=== PATIENT | female | born 1950 | race Caucasian/White ===

== ENCOUNTER 2017-06-27 23:09 | Inpatient (IN) | payer OTHER ==
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
[2017-06-27] MEDS ORDERED: ALBUTEROL 3 ML DEYVIAL IH ONE (23:32)
--- NOTE | 2017-06-27 23:46 | CPEKG ---
Heart Rate: 96 RR Interval: 625 P-R Interval: 156 QRSD Interval: 84 QT Interval: 352 QTC Interval: 445 P Ariel: 72 QRS Ariel: 48 T Wave Ariel: -3 EKG Severity - BORDERLINE ECG - EKG Impression: SINUS RHYTHM EKG Impression: BORDERLINE T ABNORMALITIES, INFERIOR LEADS Electronically Signed By: Benitez Becker 28-Jun-2017 06:23:18
[2017-06-28 00:08] LABS: % IMMATURE GRANULYOCYTES 1.4 % (0.0-1.1); ABSOLUTE IMMATURE GRANULOCYTES 0.16 10^3/uL (0.00-0.10); ADD DIFF? NO; ADD MORPH? NO; ADD SCAN? NO; ATYPICAL LYMPHOCYTE FLAG 0 (0-99); FRAGMENT RBC FLAG 0 (0-99); HEMATOCRIT 48.3 % (38.0-47.0); HEMOGLOBIN 15.8 g/dL (12.6-16.3); LEFT SHIFT FLG 10 (0-99); LIPEMIA HEMOLYSIS FLAG 80 (0-99); MEAN CELL HEMOGLOBIN 31.3 pg (27.9-34.1); MEAN CELL HEMOGLOBIN CONCENTR. 32.7 g/dL (32.4-36.7); MEAN CELL VOLUME 95.8 fL (81.5-99.8); MEAN PLATELET VOLUME 10.4 fL (8.7-11.7); PLATELET CLUMPS FLAG 0 (0-99); PLATELET COUNT 256 10^3/uL (150-400); RED BLOOD CELL COUNT 5.04 10^6/uL (4.18-5.33); RED CELL DISTRIBUTION WIDTH 14.7 % (11.5-15.2)
[2017-06-28] MEDS ORDERED: NS 1,000 ML IV ONE (00:14)
[2017-06-28 00:24] LABS: ALANINE AMINOTRANSFERASE 57 IU/L (9-52); ALBUMIN 3.4 g/dL (3.5-5.0); ALKALINE PHOSPHATASE 65 IU/L (38-126); ASPARTATE AMINOTRANSFERASE 75 IU/L (14-46); BILIRUBIN,TOTAL 1.1 mg/dL (0.1-1.4); BILIRUBIN-CONJUGATED 0.4 mg/dL (0.0-0.5); BILIRUBIN-UNCONJUGATED 0.7 mg/dL (0.0-1.1); CALCIUM 9.9 mg/dL (8.5-10.4); CARBON DIOXIDE 24 mEq/l (22-31); CHLORIDE 105 mEq/L (97-110); CREATININE 1.1 mg/dL (0.6-1.0); ETHANOL SERUM < 10 mg/dL (0-10); GLOMERULAR FILTRATION RATE 50; GLUCOSE 114 mg/dL (70-100); MAGNESIUM 1.9 mg/dL (1.6-2.3); SODIUM 141 mEq/L (134-144); TOTAL PROTEIN 5.9 g/dL (6.3-8.2)
[2017-06-28 00:30] LABS: INR 1.12 (0.83-1.16); PROTIME(PATIENT) 14.3 SEC (12.0-15.0)
[2017-06-28 00:31] LABS: APTT 28.6 SEC (23.0-38.0)
[2017-06-28 00:43] LABS: ANION GAP 12 mEq/L (8-16); LITHIUM < 0.2 mEq/L (0.6-1.2); POTASSIUM 3.4 mEq/L (3.5-5.2)
[2017-06-28 00:46] LABS: CK-MB INTERPRETATION NEGATIVE (NEGATIVE)
[2017-06-28] MEDS ORDERED: AZITHROMYCIN IV 500 MG in D5W 250 ML IV ONE (00:47)
[2017-06-28] MEDS ORDERED: methylPREDNISolone SOD SUCC 125 MG/2 ML VIAL IVP ONE (00:47)
--- NOTE | 2017-06-28 00:59 | CPEKG ---
Heart Rate: 74 RR Interval: 811 QRSD Interval: 92 QT Interval: 380 QTC Interval: 422 QRS [place]: 47 T Wave [place]: -18 EKG Severity - ABNORMAL ECG - EKG Impression: ATRIAL FIBRILLATION EKG Impression: BORDERLINE T ABNORMALITIES, INFERIOR LEADS Electronically Signed By: Benitez Becker 28-Jun-2017 06:23:18
[2017-06-28] MEDS ORDERED: ONDANSETRON DISINTEGRATING 4 MG TAB PO PRN (01:14)
[2017-06-28] MEDS ORDERED: ONDANSETRON 4 MG/2 ML VIAL IVP PRN (01:14)
[2017-06-28] MEDS ORDERED: NS 500 ML IV ONE (01:14)
[2017-06-28] MEDS ORDERED: risperiDONE 1 MG TAB PO SCH (01:17)
[2017-06-28] MEDS ORDERED: PROTOCOL POTASSIUM 1 DOSE MISC PRN (01:24)
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
[2017-06-28 04:58] LABS: % IMMATURE GRANULYOCYTES 1.6 % (0.0-1.1); ABSOLUTE IMMATURE GRANULOCYTES 0.13 10^3/uL (0.00-0.10); ADD DIFF? NO; ADD MORPH? NO; ADD SCAN? NO; ATYPICAL LYMPHOCYTE FLAG 0 (0-99); FRAGMENT RBC FLAG 0 (0-99); HEMOGLOBIN 14.7 g/dL (12.6-16.3); LEFT SHIFT FLG 10 (0-99); LIPEMIA HEMOLYSIS FLAG 80 (0-99); MEAN CELL HEMOGLOBIN 30.9 pg (27.9-34.1); MEAN CELL VOLUME 96.6 fL (81.5-99.8); MEAN PLATELET VOLUME 10.3 fL (8.7-11.7); PLATELET CLUMPS FLAG 20 (0-99); PLATELET COUNT 215 10^3/uL (150-400); RED BLOOD CELL COUNT 4.76 10^6/uL (4.18-5.33); RED CELL DISTRIBUTION WIDTH 14.6 % (11.5-15.2)
[2017-06-28 05:05] LABS: ANION GAP 9 mEq/L (8-16); CALCIUM 9.3 mg/dL (8.5-10.4); CARBON DIOXIDE 23 mEq/l (22-31); CHLORIDE 106 mEq/L (97-110); GLOMERULAR FILTRATION RATE 55; GLUCOSE 128 mg/dL (70-100); POTASSIUM 3.6 mEq/L (3.5-5.2); SODIUM 138 mEq/L (134-144)
[2017-06-28] MEDS ORDERED: POTASSIUM CL 10 MEQ TAB PO ONE ×2 (05:14→05:59)
[2017-06-28 05:17] LABS: TROPONIN I 0.185 ng/mL (0.000-0.034)
[2017-06-28] MEDS: AZITHROMYCIN IV 500 MG in D5W 250 ML IV SCH (08:29)
[2017-06-28] MEDS: ENOXAPARIN 40 MG/0.4 ML SYR SC SCH (08:29)
[2017-06-28] MEDS: ASPIRIN EC 81 MG TAB PO SCH (08:29)
[2017-06-28] MEDS: CLOPIDOGREL BISULFATE 75 MG TAB PO SCH (08:29)
[2017-06-28] MEDS ORDERED: VENLAFAXINE XR 75 MG CAP PO SCH (09:00)
[2017-06-28 09:24] LABS: COLOR YELLOW; LEUKOCYTE ESTERASE,URINE NEGATIVE (NEGATIVE); NITRITE,URINE NEGATIVE (NEGATIVE)
[2017-06-28 09:28] LABS: BACTERIA TRACE /hpf (NONE SEEN); MUCUS TRACE /lpf (NONE-1+)
[2017-06-28] MEDS ORDERED: IOPAMIDOL (ISOVUE 370) 100 ML BTL IV ONE (10:40)
[2017-06-28] MEDS ORDERED: NS 1,000 ML IV SCH (14:00)
[2017-06-28] MEDS: OLANZapine 10 MG TAB PO SCH ×2 (14:03→20:35)
--- NOTE | 2017-06-28 14:03 | HOSPPROG ---
Hospitalist Progress Note Assessment/Plan: # acute on chronic hypoxic resp failure - no PE # COPD with acute exacerbation - likely d/t ongoing tobacco use, unclear if using inhalers at home - cont azith, nebs - no prednisone given jama # bipolar with acute jama - appreciate psychiatry assistance - she likely stopped taking her meds (Lamictal level pending) - meds per Dr Mao - will need inpatient psych when medically cleared - if she tries to leave needs to have an M1 placed (she is not trying to leave currently) # elevated troponins with hx CAD: suspect demand given hypoxia - cont asa/plavix - consider stress inpatient vs outpatient - lexiscan not low risk given resp issues # dispo - will dc to inpatient psych; not medically cleared yet Subjective: very tangential Objective: Vital Signs Temp Pulse Resp BP Pulse Ox 36.9 C 64 27 H 138/78 H 91 L 06/28/17 11:18 06/28/17 11:18 06/28/17 11:18 06/28/17 11:18 06/28/17 11:18 Laboratory Results 06/28/17 04:31 06/28/17 04:31 06/27/17 06/28/17 06/29/17 05:59 05:59 05:59 Intake Total 700 500 Output Total 400 Balance 700 100 PT 14.3 SEC (12.0-15.0) 06/27/17 23:45 INR 1.12 (0.83-1.16) 06/27/17 23:45 - Physical Exam Constitutional: other (speaking quickly) Cardiovascular: regular rate and rhythym, no murmur, rub, or gallop, systolic murmur Respiratory: no respiratory distress, no rales or rhonchi, clear to auscultation Gastrointestinal: normoactive bowel sounds, soft, non-tender abdomen, no palpable masses ICD10 Worksheet Patient Problems: Problems Problem Status Onset chronic disease mgmt/transitional care Acute 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
[2017-06-28 18:47] LABS: POTASSIUM 4.2 mEq/L (3.5-5.2)
--- NOTE | 2017-06-28 20:33 | GCON ---
[f rep st] CONSULTATION PSYCHIATRIC CONSULTATION DATE OF CONSULTATION: 06/28/2017 CHIEF COMPLAINT: Ms. Richards is a 67-year-old female with bipolar mood disorder, whose chief complaint to me today is, "they used all zeros instead of numbers." HISTORY OF PRESENT ILLNESS: Ms. Richards has bipolar mood disorder. She was hospitalized on the Inpatient Psychiatric Unit at [facility] in January and March of 2012. She was in the hospital for almost a full month. She was quite ill at the time. Her mood was significantly elevated, so much so that she spent some time in seclusion and received emergency medications. In that hospital stay, over 5 years ago, we restarted medications including olanzapine 10 mg twice daily, lithium 450 mg twice daily, and Depakote 250 mg twice daily, and her mood did return to its normal more euthymic state. Currently, she is in the hospital with an exacerbation of her underlying chronic obstructive pulmonary disease, and is also quite manic. We do not have much interval history yet. We know she has a medical power of insurance defense attorney. She lives alone and takes her own medications, which are dispensed through a mechanical pillbox that dispenses her medications at appropriate times. However , we do not know if she has been taking any of her medications. As I understand it, emergency services workers were contacted by neighbors because they recognized that the patient was not doing well. On contact with the emergency services workers, they recognized she was not doing well and brought her by ambulance to the [facility] Emergency Room. In the emergency room, she was significantly hypoxic. She is supposed to use oxygen, and it sounds like she had not been for some time. She also has an elevated white count, and appeared to be significantly dehydrated. She was admitted to the medical floor, and appropriate interventions were started. They called to ask for help with her psychiatric illness. I go to see the patient today, and speak to her for some time, but she is largely nonsensical. She is not able to answer questions directly. She is not oriented. She is not aware of how ill she is. She does not acknowledge her lung illness. She does readily acknowledge her bipolar illness, but does not recognize the degree of her jama. She denies any dangerousness. She denies to me any desire to hurt others or to hurt herself. She is clearly responding to internal stimuli during the interview, talking to herself loudly. REVIEW OF SYSTEMS: She is not able to cooperate with the review of systems with me. She is not able to answer questions about her mood, concentration, appetite, and sleep. SOCIAL HISTORY: She endorses smoking 1-2 packs of cigarettes per day despite having COPD. She endorses drinking alcohol, but cannot quantitate it. Some of our notations in her chart suggests that she does not drink alcohol. She also talks about smoking marijuana, but is unable to say when she last smoked marijuana. ALLERGIES: She tells me she has too many allergies to review today. In her chart she does have multiple allergies listed. I do not see any psychiatric medications on the list of allergies. CURRENT MEDICATIONS: We have an outpatient medication list from her medical power of insurance defense attorney, Nestor Webster. Her outpatient psychiatric medications include citalopram 10 mg daily, Lamictal 50 mg daily, olanzapine 15 mg at bedtime, and her other medications appear to be all for her medical illnesses including her COPD. PAST MEDICAL HISTORY: As I have already noted, she has chronic obstructive pulmonary disease. She also has coronary artery disease. She continues to use tobacco. PAST PSYCHIATRIC HISTORY: Remarkable for bipolar mood disorder. I am not sure who her outpatient psychiatrist is at this point in time. MENTAL STATUS EXAMINATION: She is awake and alert. She is talking to herself, apparently responding to internal stimuli when I enter the room. She continues to engage with internal stimuli at times during the interview with me. She is awake and alert, sitting up in her hospital chair. She is poorly groomed, disheveled, and dressed in a hospital gown. She appears to be appropriately clean. Her speech is mildly rapid, but remarkable for the increased flow of speech. She continues to talk in a nonsensical manner with significant flight of ideas, which is difficult to interrupt. I am able to interrupt at times and ask some questions. She is not usually able to give me an answer to the question I ask. She usually will carry on, providing me with answers to questions I did not ask. She is unable to tell me what her mood state is today. Her affect is significantly elevated. She lacks any insight and judgment. She does not acknowledge that she has a medical problem. She does not acknowledge the need for treatment of medical issues. At this point in time, she clearly lacks decisional capacity. IMPRESSION: The patient is a 67-year-old female, who appears to be going through a manic exacerbation of her underlying bipolar mood disorder. Her outpatient psychiatric medications include citalopram, lamotrigine, and olanzapine. I will not restart citalopram because as an antidepressant it could make her jama worse. We do not know how long ago was her last dose of lamotrigine, so we will want to restart this medicine slowly. Her olanzapine dose at 15 mg at bedtime is reasonable, but I will break this up into two 10 mg daily doses to try and get a total of 20 mg of olanzapine per day to start. In reviewing her previous inpatient psychiatric stay, she required 40 mg daily of olanzapine to help stabilize her mood. She would be appropriate for transfer to inpatient psychiatry when her medical issues are stable, which I anticipate will be soon. DIAGNOSES: 1. Bipolar mood disorder, current episode manic, severe, with psychotic features. 2. Nicotine dependence. 3. Chronic obstructive pulmonary disease. 4. Coronary artery disease. 5. Hyperlipidemia. 6. Hypertension. 7. Sleep apnea. PLAN: 1. Optimize medical status on the medical floor and then transfer to inpatient psychiatry. 2. Start olanzapine 10 mg twice daily and consider increasing. 3. We will consider restarting a mood stabilizer such as Depakote or lithium. [place] would not be my first choice at this point in time, since she has had some evidence of impaired kidney function with an estimated GFR that is now below 60. 4. Work on smoking cessation. 5. Coordinate care with outpatient team. /[id number]/MODL MTDD
[2017-06-28] MEDS: BUDESONIDE/FORMOTEROL 160/4.5 60 PUFFS/MDI IH SCH (21:59)
[2017-06-29 05:41] LABS: ANION GAP 7 mEq/L (8-16); CALCIUM 9.6 mg/dL (8.5-10.4); CARBON DIOXIDE 25 mEq/l (22-31); CHLORIDE 109 mEq/L (97-110); CREATININE 0.9 mg/dL (0.6-1.0); GLOMERULAR FILTRATION RATE > 60; GLUCOSE 87 mg/dL (70-100); POTASSIUM 3.8 mEq/L (3.5-5.2); SODIUM 141 mEq/L (134-144)
[2017-06-29] MEDS ORDERED: POTASSIUM CL 10 MEQ TAB PO ONE ×2 (07:27→19:24)
[2017-06-29] MEDS: ENOXAPARIN 40 MG/0.4 ML SYR SC SCH (07:50)
[2017-06-29] MEDS: AZITHROMYCIN IV 500 MG in D5W 250 ML IV SCH (07:50)
[2017-06-29] MEDS: OLANZapine 10 MG TAB PO SCH ×2 (07:50→20:40)
[2017-06-29] MEDS: CLOPIDOGREL BISULFATE 75 MG TAB PO SCH (07:51)
[2017-06-29] MEDS: ASPIRIN EC 81 MG TAB PO SCH (07:51)
[2017-06-29] MEDS: IRBESARTAN 150 MG TAB PO SCH (07:51)
[2017-06-29] MEDS: ALBUTEROL 3 ML DEYVIAL IH PRN ×3 (08:56→20:16)
[2017-06-29] MEDS ORDERED: VENLAFAXINE XR 75 MG CAP PO SCH (09:00)
[2017-06-29] MEDS ORDERED: risperiDONE 2 MG TAB PO SCH (09:00)
[2017-06-29] MEDS ORDERED: lamoTRIgine 100 MG TAB PO SCH (09:00)
[2017-06-29] MEDS: BUDESONIDE/FORMOTEROL 160/4.5 60 PUFFS/MDI IH SCH ×2 (10:53→20:16)
--- NOTE | 2017-06-29 14:45 | SOAPPROG ---
SOAP Progress Note Assessment/Plan: Assessment: Bipolar Mood Disorder, MRE Manic Improved with olanzapine 10 mg BID. I recommend continuing this for now. Pt is appropriate for inpatient stabilization on BEH unit when medically stable. Plan: Continue olanzapine 10 mg BID. 06/29/17 14:47 Subjective: "I thought I was... They would wake me up outside in the snow." "I just took a shower." Slept better last night. According to the nursing staff Ms. Richards was more coherent early this AM, but has deteriorated a little as the day has progressed. Ms. Richards had no particular requests from me. She does not think she is having any medication side effects. She reports good energy, concentration, and appetite. Objective: Vital Signs Temp Pulse Resp BP Pulse Ox 36.7 C 66 16 96/64 L 93 06/29/17 11:30 06/29/17 11:30 06/29/17 11:30 06/29/17 11:30 06/29/17 11:30 Laboratory Results 06/28/17 04:31 06/29/17 05:08 06/28/17 06/29/17 06/30/17 05:59 05:59 05:59 Intake Total 700 1210 520 Output Total 400 Balance 700 810 520 PT 14.3 SEC (12.0-15.0) 06/27/17 23:45 INR 1.12 (0.83-1.16) 06/27/17 23:45 Medications Generic Name Dose Route Start Last Admin Trade Name Freq PRN Reason Stop Dose Admin Olanzapine 10 mg 06/28/17 13:45 06/29/17 07:50 Olanzapine PO 12/25/17 13:44 10 mg BID SHARAD MSE Sitting in recliner. Hospital gown, marble cleaner, neater today. Speech with increased flow but relatively normal rate. Thought processes disorganized and tangential, but easier to see the threads connecting her thoughts today, less FOI and more tangential Appears to respond to internal stimuli at times which distract her and send her off on tangents. Lacks insight and judgment. ICD10 Worksheet Patient Problems: Problems Problem Status Onset Altered mental status Acute COPD (chronic obstructive pulmonary disease) Acute Elevated troponin Acute chronic disease mgmt/transitional care Acute Severe mixed bipolar I disorder with psychotic features Active
--- NOTE | 2017-06-29 16:05 | HOSPPROG ---
Hospitalist Progress Note Assessment/Plan: 67 yo F w copd, cad, bipolar p/w jama and copd flare jama: meds restarted appreciate psych MD shore candidate for psych hospitalization after medical issues resolved + trop: w known cad repeat values now stress in AM copd flare: start pred 20. continue inhlers, azith proph: enox dispo: inpt Subjective: not manic. case d/w dr garay Objective: Vital Signs Temp Pulse Resp BP Pulse Ox 36.6 C 65 16 102/57 L 91 L 06/29/17 15:18 06/29/17 15:18 06/29/17 15:18 06/29/17 15:18 06/29/17 15:18 Laboratory Results 06/28/17 04:31 06/29/17 05:08 06/28/17 06/29/17 06/30/17 05:59 05:59 05:59 Intake Total 700 1210 1020 Output Total 400 Balance 206 795 2062 PT 14.3 SEC (12.0-15.0) 06/27/17 23:45 INR 1.12 (0.83-1.16) 06/27/17 23:45 - Physical Exam Constitutional: no apparent distress, appears nourished Eyes: PERRL, anicteric sclera Ears, Nose, Mouth, Throat: moist mucous membranes, hearing normal Cardiovascular: regular rate and rhythym, no murmur, rub, or gallop Respiratory: no respiratory distress, no rales or rhonchi, other (wheezing, diffuse) Gastrointestinal: normoactive bowel sounds, soft, non-tender abdomen Genitourinary: No madera in urethra Skin: warm Musculoskeletal: full muscle strength, no muscle tenderness Neurologic: AAOx3, sensation intact bilaterally Psychiatric: interacting appropriately, not anxious Lymph, Heme, Immunologic: no cervical LAD, no supraclavicular LAD ICD10 Worksheet Patient Problems: Problems Problem Status Onset Altered mental status Acute COPD (chronic obstructive pulmonary disease) Acute Elevated troponin Acute chronic disease mgmt/transitional care Acute Severe mixed bipolar I disorder with psychotic features Active
[2017-06-29] MEDS: predniSONE 20 MG TAB PO SCH (17:04)
[2017-06-29 17:26] LABS: POTASSIUM 3.7 mEq/L (3.5-5.2)
[2017-06-29 17:42] LABS: TROPONIN I 0.095 ng/mL (0.000-0.034)
[2017-06-30 05:35] LABS: POTASSIUM 4.3 mEq/L (3.5-5.2)
[2017-06-30 05:51] LABS: TROPONIN I 0.062 ng/mL (0.000-0.034)
[2017-06-30] MEDS: AZITHROMYCIN 250 MG TAB PO SCH (08:39)
[2017-06-30] MEDS: OLANZapine 10 MG TAB PO SCH ×2 (08:39→21:21)
[2017-06-30] MEDS: predniSONE 20 MG TAB PO SCH (08:39)
[2017-06-30] MEDS: CLOPIDOGREL BISULFATE 75 MG TAB PO SCH (08:39)
[2017-06-30] MEDS: ENOXAPARIN 40 MG/0.4 ML SYR SC SCH (08:40)
[2017-06-30] MEDS: IRBESARTAN 150 MG TAB PO SCH (08:40)
[2017-06-30] MEDS: ASPIRIN EC 81 MG TAB PO SCH (08:40)
[2017-06-30] MEDS: BUDESONIDE/FORMOTEROL 160/4.5 60 PUFFS/MDI IH SCH ×2 (09:16→21:09)
--- NOTE | 2017-06-30 10:32 | WOCRNPDOC ---
WOCRN Advanced Assessment Note - Skin Integrity Problem, Advanced Assess Left Groin Dressing Type: Open to Air Arielle Wound Tissue: Erythema Site Odor: Moderate, Musky Skin Integrity Problem Comment: Large area of erythema predominantly between left groin skin fold with scattered sattellite lesions extending superiorly into bilateral pannus folds and inferiorly between inner thigh folds toward the anus. Intertriginous candidiasis present. Treat with antifungal cream and/or nystatin (preferrable) and pillowcases to keep skin off skin. Reported to ZAYNAB George. Wound care will round again next week to check on progress.
[2017-06-30] MEDS ORDERED: REGADENOSON 0.4 MG/5 ML SYR IVP ONE (10:45)
--- NOTE | 2017-06-30 12:42 | CPR ---
[f rep st] NONINVASIVE CARDIAC PROCEDURE REPORT PROCEDURE: Lexiscan nuclear stress test. REASON FOR TEST: Chest discomfort. RESULTS: Resting EKG shows an atrial-paced rhythm with T-wave inversion in lead III and aVF. Anter ior septal late R-wave progression. She is asymptomatic. Resting blood pressure 108/64, resting he art rate 67, oxygen saturation 94%. She is on 3 L of oxygen. STRESS PORTION: Lexiscan was injected rapidly, followed by saline flush. Cardiolite was then injec kenia, followed by saline flush per protocol. Stress blood pressure 106/59, peak heart rate 85, oxyge n saturation 96%. No EKG changes. She had mild flushing and mild shortness of breath after the inj ection. No EKG changes. Her symptoms subsided during recovery. Recovery blood pressure 114/58, heart rate 65, oxygen saturation 93%. There were no EKG changes in recovery. At this time, she currently is s table for nuclear imaging. /[id number]/MODL
--- NOTE | 2017-06-30 13:58 | HOSPPROG ---
Hospitalist Progress Note Assessment/Plan: 67 yo F w copd, cad, bipolar p/w jama and copd flare jama: meds restarted appreciate psych MD shore candidate for psych hospitalization after medical issues resolved much more alert today unclear if she will need psych hospitalization after this stay + trop: trending down stress + for infarct but neg for active ischemia on asa/plavix not on statin copd flare: start pred 20. tolerating pred continue inhlers, azith proph: enox dispo: inpt Subjective: stress neg for ischemia, old infarct noted. more alert Objective: Vital Signs Temp Pulse Resp BP Pulse Ox 36.5 C 62 20 118/53 L 93 06/30/17 12:46 06/30/17 12:46 06/30/17 12:46 06/30/17 12:46 06/30/17 12:46 Laboratory Results 06/28/17 04:31 06/30/17 04:43 06/29/17 06/30/17 07/01/17 05:59 05:59 05:59 Intake Total 1210 1370 1485 Output Total 400 Balance 810 1370 1485 PT 14.3 SEC (12.0-15.0) 06/27/17 23:45 INR 1.12 (0.83-1.16) 06/27/17 23:45 - Physical Exam Constitutional: no apparent distress, appears nourished Eyes: PERRL, anicteric sclera Ears, Nose, Mouth, Throat: moist mucous membranes, hearing normal Cardiovascular: regular rate and rhythym, no murmur, rub, or gallop Respiratory: no respiratory distress, other (good air movement, no wheeze) Gastrointestinal: normoactive bowel sounds, soft, non-tender abdomen Genitourinary: no bladder fullness, madera in urethra Skin: warm, normal color Musculoskeletal: full muscle strength Neurologic: AAOx3 ICD10 Worksheet Patient Problems: Problems Problem Status Onset Altered mental status Acute COPD (chronic obstructive pulmonary disease) Acute Elevated troponin Acute chronic disease mgmt/transitional care Acute Severe mixed bipolar I disorder with psychotic features Active
--- NOTE | 2017-06-30 15:03 | SOAPPROG ---
SOAP Progress Note Assessment/Plan: Assessment: Bipolar Mood Disorder, MRE Manic Improved with olanzapine 10 mg BID. I recommend continuing this for now. Pt is appropriate for inpatient stabilization on BEH unit when medically stable. Improving every day but still not well oriented, lacks coherent thought processes and plan for caring for self at home. Plan: Continue olanzapine 10 mg BID. 06/30/17 15:03 Subjective: "I had a shower." Reports good sleep and better energy. Tells me she sleeps in a recliner at home. On continuous oxygen. Much more conversant, but superficial. Not oriented. Objective: Vital Signs Temp Pulse Resp BP Pulse Ox 36.5 C 62 20 118/53 L 93 06/30/17 12:46 06/30/17 12:46 06/30/17 12:46 06/30/17 12:46 06/30/17 12:46 Laboratory Results 06/28/17 04:31 06/30/17 04:43 06/29/17 06/30/17 07/01/17 05:59 05:59 05:59 Intake Total 1210 1370 1485 Output Total 400 Balance 810 1370 1485 PT 14.3 SEC (12.0-15.0) 06/27/17 23:45 INR 1.12 (0.83-1.16) 06/27/17 23:45 Medications Generic Name Dose Route Start Last Admin Trade Name Freq PRN Reason Stop Dose Admin Prednisone 20 mg 06/29/17 16:00 06/30/17 08:39 Prednisone PO 12/26/17 15:59 20 mg DAILY SHARAD Olanzapine 10 mg 06/28/17 13:45 06/30/17 08:39 Olanzapine PO 12/25/17 13:44 10 mg BID SHARAD MSE Awake, alert, a little breathless after walking in [place], but still able to complete a sentence with one breath Not oriented except to person when I ask today. Speech more normal in rate and tone. Minimal content to speech. Thought processes more linear today, but more concrete lacks insight and judgment ICD10 Worksheet Patient Problems: Problems Problem Status Onset Altered mental status Acute COPD (chronic obstructive pulmonary disease) Acute Elevated troponin Acute chronic disease mgmt/transitional care Acute Severe mixed bipolar I disorder with psychotic features Active
[2017-06-30 18:42] LABS: POTASSIUM 4.5 mEq/L (3.5-5.2)
[2017-07-01 03:37] VITALS: RESP 16
[2017-07-01 05:27] LABS: ANION GAP 8 mEq/L (8-16); CALCIUM 9.9 mg/dL (8.5-10.4); CARBON DIOXIDE 29 mEq/l (22-31); CHLORIDE 103 mEq/L (97-110); CREATININE 0.8 mg/dL (0.6-1.0); GLOMERULAR FILTRATION RATE > 60; GLUCOSE 76 mg/dL (70-100); POTASSIUM 3.8 mEq/L (3.5-5.2); SODIUM 140 mEq/L (134-144)
[2017-07-01] MEDS: OLANZapine 10 MG TAB PO SCH (09:10)
[2017-07-01] MEDS: IRBESARTAN 150 MG TAB PO SCH (09:10)
[2017-07-01] MEDS: ENOXAPARIN 40 MG/0.4 ML SYR SC SCH (09:10)
[2017-07-01] MEDS: ASPIRIN EC 81 MG TAB PO SCH (09:10)
[2017-07-01] MEDS: predniSONE 20 MG TAB PO SCH (09:10)
[2017-07-01] MEDS: AZITHROMYCIN 250 MG TAB PO SCH (09:11)
[2017-07-01] MEDS: BUDESONIDE/FORMOTEROL 160/4.5 60 PUFFS/MDI IH SCH (09:11)
[2017-07-01] MEDS: CLOPIDOGREL BISULFATE 75 MG TAB PO SCH (09:11)
[2017-07-01] MEDS ORDERED: POTASSIUM CL 10 MEQ TAB PO ONE (10:49)
[2017-07-01 11:28] VITALS: BP 126/83; PULSE 64; TEMP 97.9; O2SAT 92
--- NOTE | 2017-07-01 14:30 | HOSPPROG ---
Hospitalist Progress Note Assessment/Plan: 67 yo F w copd, cad, bipolar p/w jama and copd flare jama: meds restarted appreciate psych MD shore candidate for psych hospitalization after medical issues resolved much more alert today unclear if she will need psych hospitalization after this stay + trop: trending down stress + for infarct but neg for active ischemia on asa/plavix not on statin copd exacerbattion complicated by acute on chronic respiratopry failure: stop pred at her request complete course azithro proph: enox dispo: dc to behavioral health today >30 minutes on dc Subjective: amenable to psychiatric hospitalization Objective: Vital Signs Temp Pulse Resp BP Pulse Ox 36.6 C 64 16 126/83 H 92 07/01/17 11:28 07/01/17 11:28 07/01/17 11:28 07/01/17 11:28 07/01/17 11:28 Laboratory Results 06/28/17 04:31 07/01/17 04:07 06/30/17 07/01/17 07/02/17 05:59 05:59 05:59 Intake Total 1370 3055 Balance 1370 3055 PT 14.3 SEC (12.0-15.0) 06/27/17 23:45 INR 1.12 (0.83-1.16) 06/27/17 23:45 - Physical Exam Constitutional: no apparent distress, appears nourished Eyes: PERRL, anicteric sclera Ears, Nose, Mouth, Throat: moist mucous membranes, hearing normal Cardiovascular: regular rate and rhythym, no murmur, rub, or gallop Respiratory: no respiratory distress, no rales or rhonchi Gastrointestinal: normoactive bowel sounds, soft, non-tender abdomen Genitourinary: no bladder fullness, No madera in urethra Skin: warm, normal color Musculoskeletal: full muscle strength, no muscle tenderness Neurologic: AAOx3 ICD10 Worksheet Patient Problems: Problems Problem Status Onset Altered mental status Acute COPD (chronic obstructive pulmonary disease) Acute Elevated troponin Acute chronic disease mgmt/transitional care Acute Severe mixed bipolar I disorder with psychotic features Active
--- NOTE | 2017-07-01 18:57 | GDS ---
[f rep st] DISCHARGE SUMMARY DISCHARGE DIAGNOSES: 1. Nzrys-bw-nekagfo hypoxic respiratory failure. 2. Chronic obstructive pulmonary disease exacerbation. 3. Psychosis. 4. Coronary disease with positive troponin and negative stress. Please see admission history and physical by Dr. Mariela Valerio. Patient presented on the evening of the with increased work of breathing and psychosis. She had self discontinued her psychiatric m edications. She was found to be hypoxic, although she lives in [place] and takes 3 L of oxygen at home. She had a negative CTA. She had positive troponins and nonischemic EKG. She underwent stress test which showed prior infarct but no ischemia; please refer to the report for further details. The patient was seen by Psychiatry. She was restarted on her home medications with significant clear ing in her mental status, but ultimately was transitioned to the Behavior Health Unit for further ti tration of her outpatient medications. /[id number]/MODL
== END 2017-07-01 18:24 | DRG 190 ==
LOC: EDUNIT# → F2W 06-28 02:14
PROVIDERS: ADMIT Hospitalist; ATTEND Internal Medicine
DX: J44.1 Chronic obstructive pulmonary disease with (acute) exacerbation (principal); J96.21 Acute and chronic respiratory failure with hypoxia; F31.2 Bipolar disorder, current episode manic severe with psychotic features; N17.9 Acute kidney failure, unspecified; I25.10 Atherosclerotic heart disease of native coronary artery without angina pectoris; G47.33 Obstructive sleep apnea (adult) (pediatric); E03.9 Hypothyroidism, unspecified; I10 Essential (primary) hypertension; F17.210 Nicotine dependence, cigarettes, uncomplicated; I25.2 Old myocardial infarction
CPT/HCPCS: 80175-90; 96374; 97116-GP; 97162-GP; 97165-GO; 97535-GO; A9500; G0480; G8978-GP-CI; G8979-GP-CI; G8987-GO-CJ; G8988-GO-CI; J0456; J1650; J2785; Q9967

== ENCOUNTER 2017-07-01 18:45 | Inpatient (IN) | payer OTHER ==
[2017-07-01] MEDS: OLANZapine 10 MG TAB PO SCH (22:12)
[2017-07-01] MEDS ORDERED: ALBUTEROL 200 PUFFS/18 GM MDI IH PRN (23:19)
[2017-07-02] MEDS ORDERED: ALBUTEROL 3 ML DEYVIAL IH PRN (08:06)
[2017-07-02] MEDS: OLANZapine 10 MG TAB PO SCH ×2 (08:26→19:39)
[2017-07-02] MEDS: CLOPIDOGREL BISULFATE 75 MG TAB PO SCH (08:26)
[2017-07-02] MEDS: ASPIRIN EC 81 MG TAB PO SCH (08:26)
[2017-07-02] MEDS ORDERED: BUDESONIDE/FORMOTEROL 160/4.5 60 PUFFS/MDI IH SCH ×2 (09:00)
[2017-07-02] MEDS ORDERED: IRBESARTAN 150 MG TAB PO SCH (09:00)
[2017-07-02] MEDS ORDERED: predniSONE 20 MG TAB PO SCH (09:00)
[2017-07-02] MEDS: BUDESONIDE/FORMOTEROL 160/4.5 60 PUFFS/MDI IH SCH ×2 (09:22→19:39)
[2017-07-02] MEDS: IRBESARTAN 75 MG TAB PO SCH (09:26)
--- NOTE | 2017-07-02 09:39 | BAPA ---
[f rep st] ADMISSION PSYCHIATRIC ASSESSMENT DATE OF SERVICE: 07/02/2017 CHIEF COMPLAINT: The patient is a 67-year-old female, whose chief complaint to me today is "There is a program that runs." HISTORY OF PRESENT ILLNESS: Ms. Richards is a 67-year-old female with a long history of bipolar mood disorder. She was admitted to the hospital originally on 06/27/2017 with a severe COPD exacerbation. She was on the medical floor, and I consulted on her over there. She appears to be undergoing an exacerbation of her underlying bipolar mood disorder, as well as a COPD exacerbation. We suspect that she discontinued some of her medications, but we are not sure at this point in time. She has a power of property claims adjuster, whom we believe knows her well, and we will be checking with him to see if we can get any history around what caused the current exacerbation of her bipolar mood disorder and her COPD. She is followed by Bala See MD, as her PCP, for about 15 years. I understand that he prescribes her psychiatric medications, as well as her other medications. She currently tells me that she is feeling better. At one point during the interview, she tells me, "I feel really good." She reports that she thinks she is getting back to her normal self. She still has some shaking and tremulousness, which we attribute to her breathing treatments. She does admit that she is still short of breath when she walks relatively short distances. However, she is able to get out extended sentences in one breath, which is a significant improvement over the past 4 days. The patient's outpatient medications for bipolar mood disorder included citalopram 10 mg daily, Lamictal 50 mg daily, and olanzapine 15 mg at bedtime. In the past, she has been on lithium and Depakote. She is not able to tell me why she is not taking these medications any more. She was hospitalized at the [facility] inpatient psychiatric unit previously, 5 years ago in March of 2012. Since that time, we believe that she has been stable. She has not been hospitalized here, and she denies other inpatient psychiatric stays. She is not able to remember many details around getting ill and landing in the hospital unfortunately. It is not clear what the exacerbating factors were around this current hospital stay, at least from her psychiatric standpoint. CURRENT REVIEW OF SYSTEMS: She reports that her mood is currently good. She tells me that she sleeps generally well, but does get up several times during the night to use the bathroom. Her energy is good. Her concentration and appetite are also both okay. She says her that her appetite is very good right now. She was treated with a pulse of prednisone, and this likely increased her appetite. She admits to feeling a little bit anxious, but we are not sure if that is underlying anxiety or from her beta-agonist inhalers. She is not feeling overwhelmed. She denies auditory or visual hallucinations. She denies any suicidal thinking or any desire to hurt other people. SOCIAL HISTORY: She tells me she has quit smoking cigarettes. If this is true , it seems to be a relatively recent quitting. She smoked cigarettes for many years. She denies alcohol use. She denies drug use. ALLERGIES: She has multiple medication allergies. She has had bad reactions to statin medications in the past and has listed allergies to rosuvastatin and simvastatin. She has an allergy to ramipril. She has a penicillin allergy. She has had bad reactions to metoprolol in the past. She has also had fenofibrate problems. She is listed as allergic to atorvastatin. Per her list , she is also allergic to quetiapine. CURRENT MEDICATIONS: Include clopidogrel 75 mg daily, aspirin 81 mg daily, Proventil nebulizers q.4 hours p.r.n., and a Symbicort inhaler 2 puffs twice daily. She is on irbesartan 150 mg daily for her hypertension. She is on 10 mg of olanzapine twice daily for her bipolar mood disorder. As I mentioned in the HPI, she recently finished a pulse of prednisone. PAST MEDICAL HISTORY: Remarkable for multiple medical problems. She has COPD with an acute on chronic exacerbation. She has a history of coronary artery disease, hyperlipidemia, hypertension, and a history of sleep apnea as well. PAST PSYCHIATRIC HISTORY: Remarkable for bipolar mood disorder. She also has an extended history of nicotine dependence, and I am happy to hear that she has quit smoking. MENTAL STATUS EXAMINATION: She is awake and alert when I go to see her. She is not fully oriented. She knows who she is and that she is in the hospital. She knows that is late June or early July. She thinks it is Wednesday, when it is actually Wednesday. We reoriented her today. Her speech is somewhat halting in rate, largely because of shortness of breath. However, her speech is relatively fluid. Her thought processes are generally linear and logical today. She does not seem to be distracted by internal stimuli this morning. She has been distracted by internal stimuli in the recent past. Her speech is definitely neither pressured nor rapid today, and much more appropriate but that was 4 days ago. Her insight and judgment are poor, but improved. IMPRESSION: The patient is a 67-year-old female with a long history of bipolar mood disorder. We will admit her and try to stabilize her on medications. She did appear to be manic and appears much more stable at this point in time. She has probably been helped both by getting her COPD exacerbation under control and by starting a good dose of olanzapine. We will give some consideration to trying to adjust the dose of olanzapine to a bedtime dose. We will try to coordinate with the outpatient care team about other medications. I wonder if lamotrigine would be a good medication choice for this patient. She does not appear to have this listed as an allergy. Given that her outpatient medications have recently included antidepressants such as citalopram, lamotrigine might be a better mood stabilizer if she principally has depressed episodes of bipolar. DIAGNOSES: 1. Bipolar mood disorder, most recent episode manic, severe, with psychotic features. 2. Nicotine dependence. 3. Chronic obstructive pulmonary disease exacerbation. 4. Coronary artery disease. 5. Hyperlipidemia. 6. Hypertension. 7. Sleep apnea. PLAN: 1. Admit on mental health hold which expires on 07/04/2017 and consider voluntary admission when the mental health hold expires if she continues to do well. 2. Olanzapine 10 mg twice daily. Consider moving toward 20 mg HS. 3. Consider starting on lamotrigine. 4. Continue medications for COPD. 5. Coordinate with outpatient care team for both collateral information and followup care. /[id number]/MODL MTDD
--- NOTE | 2017-07-02 13:04 | BLETTER ---
July 02, [address] [place], [place]. RE: Petition for short-term certification of Jina Richards ([id number]). Dear Honorable Manager Game: I am writing this letter in support of the certification for short-term care and treatment of Ms. Jina Richards. Ms. Richards has bipolar mood disorder. Ms. Richards was hospitalized at [facility] for her bipolar mood disorder on June 30 of this year. She was initially admitted on a 72-hour mental health hold, and I am placing her on a short-term certification on July 02, 2017. Ms. Richards has a long history of bipolar mood disorder. She is usually reasonably well controlled with medications. She also has severe obstructive lung disease. She is suffering through an exacerbation of her bipolar mood disorder, and is currently manic. With her jama, she stops taking all of her medications, including medications for her lung and heart problems. This makes her dangerous to herself. She has been unable to meet her basic needs for food , clothing, and long term, and so is gravely disabled as well. On our inpatient psychiatric unit her thought processes have been so confused that she has needed help to perform even simple tasks. Because she has been off her medications suffering through an exacerbation of her underlying lung disease, she has been so weak she has been unable to walk more than a few steps without help. In my professional opinion, Ms. Richards suffers from a significant mental illness which causes her to be a danger to herself and gravely disabled. Ms. Richards's insight and judgment are markedly impaired secondary to her mental illness. Ms. Richards does not recognize the nature and extent of her illness. Ms. Richards does not recognize her impairment nor the need for treatment of her illness. I have offered Ms. Richards voluntary treatment but she has refused. Ms. Richards is being read her rights and receiving a copy of the certification. She is being notified of her right to contracts paralegal and 3rd constitution party notification. Respectfully yours, DILMA
--- NOTE | 2017-07-02 16:49 | BCON ---
[f rep st] BEH[facility]IORAL [facility] CONSULTATION INTERNAL MEDICINE CONSULTATION DATE OF CONSULTATION: 07/02/2017 REFERRING PHYSICIAN: Ez Mao MD REASON FOR REFERRAL: Medical clearance for inpatient [facility]. HISTORY OF PRESENT ILLNESS: This patient was [facility] from [facility], where she had presented with shortness of breath and manic sympt oms on 06/28/2017. She was diagnosed with bronchitis and COPD exacerbation. She had demand ischemi a with a troponin leak, and had a nuclear cardiac scan which ruled out any active reversible ischemi a but found septal and anterior hypokinesis. She had been noncompliant with medications regarding d iagnosis of bipolar disorder. CT pulmonary angiogram ruled out pulmonary embolus. She was treated with antibiotics, and psychiatry consult was obtained. She was resumed on psychiatric medications, and ultimately discharged to [facility] for further psychiatric stabilization prior to return to home. She is currently without any acute complaints. PAST MEDICAL HISTORY: 1. Bipolar disorder. 2. Coronary artery disease. 3. Sick sinus syndrome. 4. COPD. 5. Hypertension. PAST SURGICAL HISTORY: She has had a pacemaker placement. MEDICATIONS: Prior to admission, per the emergency department note: 1. Aspirin 81 mg p.o. daily. 2. Clopidogrel 75 mg p.o. daily. 3. Albuterol daily. 4. Budesonide/formoterol 1 puff b.i.d. 5. Irbesartan 150 mg p.o. daily. 6. Lamotrigine 100 mg p.o. daily. 7. Citalopram 10 mg p.o. daily. 8. Olanzapine 15 mg p.o. at bedtime. ALLERGIES: There is an extensive list of allergies and intolerances to latex, acetaminophen, Augmen tin, atorvastatin, fenofibrate, hydrocodone, levofloxacin, metoprolol, penicillin V, quetiapine, erich ipril, rosuvastatin, simvastatin, tiotropium. SOCIAL HISTORY: [place] [facility] [place]. Apparently, there i s a caregiver who lives with her, who has been away. She has been a heavy tobacco smoker, but repor ts that she has quit smoking. She uses occasional alcohol. FAMILY HISTORY: Noncontributory. REVIEW OF SYSTEMS: She reports that she has had 2 recent falls, and that she uses her oxygen tank o n wheels to improve her stability when she ambulates. She finds the walker too large to maneuver. She says that she fell in perhaps the only place in her home where she could get up, I believe it wa s the bathroom, landed on her knees, and had considerable pain for some time thereafter, but the arley n has resolved. Otherwise, she is not in pain. She denies cough or dyspnea. She denies chest pain or palpitations. She has a good appetite. She denies nausea, vomiting, constipation, or diarrhea. She denies dysuria or urinary frequency. Otherwise, a 10-point review of systems is negative. PHYSICAL EXAM: VITAL SIGNS: Blood pressure is 123/72, heart rate is 67, respiratory rate is 17, ox ygen saturation is 96% on 3 L. Her temperature is 36.6 degrees centigrade. Her weight is 104.4 kg for a body mass index of 40. GENERAL: This is an obese woman, lying in bed, sits up, eating ice cr eam, cooperative, and in no acute distress. HEENT: Extraocular movements are intact. Pupils are e qual, round, and reactive to light. Mucous membranes are moist. Dentition is in good condition. N GERMAN: Supple. HEART: There is regular rate and rhythm with occasional skipped beat and no murmurs, rubs or gallops. LUNGS: Clear to auscultation bilaterally. ABDOMEN: Obese, soft, nontender, non distended, with normoactive bowel sounds. EXTREMITIES: There is no cyanosis, clubbing, or edema. NEUROLOGIC: She is alert and oriented x3. Cranial nerves 2-12 are grossly intact. There is no foc al weakness. Sensation is intact to light touch. LABORATORY: Most recent laboratory studies from the hospital: CBC was overall normal on 06/28/2017 , with the exception of a slightly low mean cellular hemoglobin. There was no leukocytosis, but the re was a relative predominance of neutrophils and an increase in absolute neutrophils at 6.91. Ther e was a left shift with 1.6.% immature granulocytes. Serum chemistry revealed normal renal function and electrolytes. She had a troponin excursion with the maximum being 0.23, which is indeterminate for myocardial infarction. She had mild elevation of hepatic transaminases with an AST of 75, and an ALT of 57. BNP was 372, which is elevated but not diagnostic of heart failure. Urinalysis revea led trace ketones, 1+ blood, 4+ urobilinogen, and 10-15 red blood cells. Blood cultures were negati ve. ASSESSMENT/RECOMMENDATIONS: 1. Mental health issues. Pending further evaluation and management per Psychiatry and the mental [facility] team. 2. Chronic obstructive pulmonary disease, status post exacerbation and episode of bronchitis, appea rs to have been effectively treated and she is likely at or near her respiratory baseline. 3. Coronary artery disease, intolerant of statins. Continue aspirin and clopidogrel. 4. Hypertension, appears adequately controlled on irbesartan. 5. Falls, and questionable strategy using a rolling oxygen tank for stability. Will order a physic al therapy evaluation to attempt to mitigate her fall risk. 6. Obesity. Consider avoiding medications which would cause further weight gain. However, her psy chosocial stabilization is first priority. I see no medical contraindications to this patient's continued stay on the inpatient behavioral [facility] unit or to any psychiatric medications or procedures. Thank you very much for including me in the care of this patient, and please do not hesitate to cont act me or the hospitalist service should there be need for further medical evaluation. /[id number]/MODL
[2017-07-03] MEDS: CLOPIDOGREL BISULFATE 75 MG TAB PO SCH (08:46)
[2017-07-03] MEDS: ASPIRIN EC 81 MG TAB PO SCH (08:47)
[2017-07-03] MEDS: BUDESONIDE/FORMOTEROL 160/4.5 60 PUFFS/MDI IH SCH ×2 (08:47→20:44)
[2017-07-03] MEDS: IRBESARTAN 75 MG TAB PO SCH (08:47)
[2017-07-03] MEDS ORDERED: OLANZapine 10 MG TAB PO SCH (09:00)
[2017-07-03] MEDS ORDERED: OLANZapine 5 MG TAB PO SCH (09:00)
[2017-07-03] MEDS ORDERED: IBUPROFEN 200 MG TAB PO PRN (11:27)
--- NOTE | 2017-07-03 15:28 | SOAPPROG ---
SOAP Progress Note Assessment/Plan: Assessment: 67 yo woman with h/o bipolar disorder and serious chronic medical conditions including COPD, Sick sinus syndrome, HTN presented to [facility] ED with SOB d/t exacerbation of COPD as well as bronchitis. She lives alone in remote cabin near [place], [place] and supposedly has caregiver who supervises her meds. However, this caregiver has been away for several weeks, and patient admits she hasn't been taking her meds. She is prescribed her psych meds by her PCP. She was reported acting "manic" in ED, however, upon presentation to inpatient behavioral health unit on 3N, she does not exhibit any s/s of jama or psychosis. She denies being depressed and denies any SI/HI. There is some discrepancy between her med reconciliation and the meds listed in ED report as well as in Dr. Mao's initial psych assessment. The med reconciliation states she has been prescribed Risperidone 2mg daily, Effexor XR 75mg daily and Lamictal 100mg (last dose unknown). However, Dr. Mao mentions in his initial psych assessment that patient was most recently prescribed Citalopram 10mg daily, Lamictal 50mg daily and Olanzapine 15mg QHS. But later he states that her PCP Dr. Thomas was prescribing Olanzapine 10mg PO BID for bipolar, and doesn't say anything about the Citalopram or Lamictal. I talked to patient today and asked specifically which meds she has been taking most recently. She reports taking Citalopram, but doesn't know the dose, and says she only takes it on "Wednesday, Wednesday and Wednesday" b/c "I don't need that much." It's not clear if this is how her PCP told her to take it or if that was her decision. She says she was taking the Lamictal "every day" but not sure about the dose. She also says she only took the Olanzapine "when I thought I needed it." 07/03/17 15:24 Plan: 1. Continue Olanzapine only for now. Will decrease dose to 15mg QHS which is sufficient to treat bipolar and psychosis as initial dose. 2. Patient is still not demonstrating any s/s of jama. She does not have racing thoughts, rapid speech, elated/elevated mood, decreased need for sleep or increase in goal directed activity. She appears to have AMS and confusion that is slowly resolving. These sxs are more likely d/t COPD exacerbation and bronchitis with lingering effects of infection and hypoxia rather than to be the result of her mood disorder. ' 3. Will continue to monitor to evaluate whether patient needs additional psychopharmacotherapy. 4. For now, continue to treat chronic medical conditions with current med regimen. DR. Smith has reviewed meds and labs and made treatment recommendations. Please see his H&P for further details. Dr. Smith will follow patient for medical issues. 5. Upon MD's recommendation, RN spoke to hospitalist potline monitor b/c patient had slight fever (100F) and b/c Dr. Mao ordered albuterol nebs for patient even though she doesn't use nebs at home. Hospitalist said to continue with Symbicort and patient did not need the neb treatments. Patient is on 3L 02 NC and denies any SOB. Subjective: Met with patient, reviewed chart and discussed with staff. Patient is sitting up in bed wearing NC with oxygen tank by her bed. She is eating snack and is able to converse with MD without any SOB. She is calm, pleasant and cooperative. She does not have racing thoughts, pressured speech or elated/ elevated mood. Her appetite and sleep on unit are normal. Patient says she works part-time for the [employer], but lives near [place]. She says it's a long way to drive to work, but she doesn't mind. She says she was having some problem with the software she uses at work last week. But MD isn't sure if patient is telling the truth or is delusional or confused. Will try to verify on Wednesday when her friend and POA is back in town. Hopefully the CC will be able to reach her friend by then. Objective: Vital Signs Temp Pulse Resp BP Pulse Ox 37.7 C 85 14 144/68 H 94 07/03/17 08:00 07/03/17 08:00 07/03/17 08:00 07/03/17 08:47 07/03/17 08:00 MSE: Obese, sitting in bed, wearing NC for oxygen, multiple bruises on arms ( Patient had recent fall at home). Affect: Euthymic Mood: "OK" TP: Tangential, disorganized TC: Denies any AH/VH, no paranoia, no obvious delusions (says she works for [employer] - will need to confirm), denies any SI/HI Insight/ Judgment: Poor - Time Spent With Patient Time Spent With Patient: 25" - Pending Discharge Pending Discharge Within 24 Hours: No ICD10 Worksheet Patient Problems: Problems Problem Status Onset Severe mixed bipolar I disorder with psychotic features Active Altered mental status Acute COPD (chronic obstructive pulmonary disease) Acute Elevated troponin Acute chronic disease mgmt/transitional care Acute
[2017-07-03] MEDS: OLANZapine 10 MG TAB PO SCH (20:44)
[2017-07-04] MEDS: ASPIRIN EC 81 MG TAB PO SCH (08:24)
[2017-07-04] MEDS: IRBESARTAN 75 MG TAB PO SCH (08:24)
[2017-07-04] MEDS: CLOPIDOGREL BISULFATE 75 MG TAB PO SCH (08:24)
[2017-07-04] MEDS: BUDESONIDE/FORMOTEROL 160/4.5 60 PUFFS/MDI IH SCH ×2 (08:56→20:35)
--- NOTE | 2017-07-04 14:48 | SOAPPROG ---
SOAP Progress Note Assessment/Plan: Assessment: 67 yo woman with h/o bipolar disorder and serious chronic medical conditions including COPD, Sick sinus syndrome, HTN presented to [facility] ED with SOB d/t exacerbation of COPD as well as bronchitis. She lives alone in remote cabin near [place], [place] and supposedly has caregiver who supervises her meds. However, this caregiver has been away for several weeks, and patient admits she hasn't been taking her meds. She is prescribed her psych meds by her PCP. She was reported acting "manic" in ED, however, upon presentation to inpatient behavioral health unit on 3N, she does not exhibit any s/s of jama or psychosis. She denies being depressed and denies any SI/HI. There is some discrepancy between her med reconciliation and the meds listed in ED report as well as in Dr. Mao's initial psych assessment. The med reconciliation states she has been prescribed Risperidone 2mg daily, Effexor XR 75mg daily and Lamictal 100mg (last dose unknown). However, Dr. Mao mentions in his initial psych assessment that patient was most recently prescribed Citalopram 10mg daily, Lamictal 50mg daily and Olanzapine 15mg QHS. But later he states that her PCP Dr. Thomas was prescribing Olanzapine 10mg PO BID for bipolar, and doesn't say anything about the Citalopram or Lamictal. I talked to patient today and asked specifically which meds she has been taking most recently. She reports taking Citalopram, but doesn't know the dose, and says she only takes it on "Wednesday, Wednesday and Wednesday" b/c "I don't need that much." It's not clear if this is how her PCP told her to take it or if that was her decision. She says she was taking the Lamictal "every day" but not sure about the dose. She also says she only took the Olanzapine "when I thought I needed it." 07/03/17 15:24 Plan: 1. Continue Olanzapine only for now. Will decrease dose to 15mg QHS which is sufficient to treat bipolar and psychosis as initial dose. 2. Patient is still not demonstrating any s/s of jama. She does not have racing thoughts, rapid speech, elated/elevated mood, decreased need for sleep or increase in goal directed activity. She appears to have AMS and confusion that is slowly resolving. These sxs are more likely d/t COPD exacerbation and bronchitis with lingering effects of infection and hypoxia rather than to be the result of her mood disorder. ' 3. Will continue to monitor to evaluate whether patient needs additional psychopharmacotherapy. 4. For now, continue to treat chronic medical conditions with current med regimen. DR. Smith has reviewed meds and labs and made treatment recommendations. Please see his H&P for further details. Dr. Smith will follow patient for medical issues. 5. Upon MD's recommendation, RN spoke to hospitalist party demonstrator b/c patient had slight fever (100F) and b/c Dr. Mao ordered albuterol nebs for patient even though she doesn't use nebs at home. Hospitalist said to continue with Symbicort and patient did not need the neb treatments. Patient is on 3L 02 NC and denies any SOB. 07/04/17 14:44 Plan: 1. Patient has agreed to continue taking Olanzapine 15mg at HS 2. No other meds indicated at this time as she does not have sxs of jama or depression 3. Concern for patient's safety at home is high. She has fallen at least once recently, and has had difficulty managing her meds, even with GEOGRAPHY TEACHER's assistance. MD recommends home health and possibly an independent living situation. Will require further assessment of home environment and trial with home health aides would be advisable. 4. Recommend referral to psych MD specialist rather than have meds prescribed by PCP 5. Screening for dementia and cognitive function recommended Subjective: Met with patient and discussed with staff. Patient able to walk from dining room to bed room without oxygen and little SOB. She is pulling her oxygen tank even though it isn't turned on. Patient likely requires some form of assistive device to ambulate. She refuses to use a walker at home, which puts her at increased risk for falls. Staff report that she remains confused about dates and historical events in her life. Yesterday, she told MD she was still working part-time for [employer], but she told RN she retired in 2007. These kinds of memory lapses could be signs of cognitive decline and even dementia. Her h/o chronic COPD raises concerns about vascular dementia. Objective: Vital Signs Temp Pulse Resp BP Pulse Ox 36.9 C 87 16 110/70 95 07/04/17 08:17 07/04/17 08:17 07/04/17 08:17 07/04/17 08:24 07/04/17 08:17 MSE: Obese, multiple bruises on UE from recent fall, seated in bed with NC. Affect: Euthymic Mood: "Good" TP: Logical, linear TC: Denies SI/HI, no AH/VH , no paranoia or delusions Insight/Judgment: Fair - Time Spent With Patient Time Spent With Patient: 20" - Pending Discharge Pending Discharge Within 24 Hours: No ICD10 Worksheet Patient Problems: Problems Problem Status Onset Severe mixed bipolar I disorder with psychotic features Active Altered mental status Acute COPD (chronic obstructive pulmonary disease) Acute Elevated troponin Acute chronic disease mgmt/transitional care Acute
[2017-07-04] MEDS: OLANZapine 10 MG TAB PO SCH (20:36)
[2017-07-05] MEDS: BUDESONIDE/FORMOTEROL 160/4.5 60 PUFFS/MDI IH SCH ×2 (09:24→20:31)
[2017-07-05] MEDS: ASPIRIN EC 81 MG TAB PO SCH (09:24)
[2017-07-05] MEDS: CLOPIDOGREL BISULFATE 75 MG TAB PO SCH (09:24)
[2017-07-05] MEDS: IRBESARTAN 75 MG TAB PO SCH (10:32)
--- NOTE | 2017-07-05 13:35 | SOAPPROG ---
CRISTINE Progress Note Assessment/Plan: Assessment: Plan: 07/05/17 13:35 Improving. CCM. Subjective: Pt seen, discussed with staff, chart reviewed. She reports feeling well. Talks about the need to comb her hair forward with her fingers "to cover the thoughts in my head that I'm not supposed to know. If I do this (comb) then I can put my thoughts in the computer later." She is o/w pleasant and appropriately interactive. Objective: Vital Signs Temp Pulse Resp BP Pulse Ox 36.8 C 85 16 100/53 L 94 07/05/17 08:00 07/05/17 08:00 07/05/17 08:00 07/05/17 10:32 07/05/17 08:00 MSE: Calm, coop. Affect is brighter, smiling frequently. Mood is "good." TP is generally linear. TC reveals some odd thoughts. Denies AH's. A&Ox3, unsure of exact date. Denies SI. - Time Spent With Patient Time Spent With Patient: 15" ICD10 Worksheet Patient Problems: Problems Problem Status Onset Severe mixed bipolar I disorder with psychotic features Active Altered mental status Acute COPD (chronic obstructive pulmonary disease) Acute Elevated troponin Acute chronic disease mgmt/transitional care Acute
[2017-07-05] MEDS: OLANZapine 10 MG TAB PO SCH (20:27)
[2017-07-06] MEDS: CLOPIDOGREL BISULFATE 75 MG TAB PO SCH (08:44)
[2017-07-06] MEDS: BUDESONIDE/FORMOTEROL 160/4.5 60 PUFFS/MDI IH SCH ×2 (08:44→19:59)
[2017-07-06] MEDS: ASPIRIN EC 81 MG TAB PO SCH (08:44)
[2017-07-06] MEDS: IRBESARTAN 75 MG TAB PO SCH (08:44)
--- NOTE | 2017-07-06 16:33 | SOAPPROG ---
SOAP Progress Note Assessment/Plan: Assessment: Plan: 07/05/17 13:35 Improving. CCM. 07/06/17 16:32 Continued gradual improvement. CCM. Subjective: Pt seen, discussed with staff. Reports feeling "good" today. No respiratory c/ o's. Went to groups this morning. She is in agreement with d/c plan. Team discussed need for home health nursing in morning meeting. Objective: Vital Signs Temp Pulse Resp BP Pulse Ox 37.0 C 96 14 122/67 H 94 07/06/17 08:55 07/06/17 08:55 07/06/17 08:55 07/06/17 08:55 07/06/17 10:34 MSE: Calm, coop. Affect is slightly blunted, but brighter. Mood is "good." TP generally linear. TC reveals no psychosis. Denies SI/HI/. - Time Spent With Patient Time Spent With Patient: 15" ICD10 Worksheet Patient Problems: Problems Problem Status Onset Severe mixed bipolar I disorder with psychotic features Active Altered mental status Acute COPD (chronic obstructive pulmonary disease) Acute Elevated troponin Acute chronic disease mgmt/transitional care Acute
[2017-07-06] MEDS: OLANZapine 10 MG TAB PO SCH (19:59)
[2017-07-07] MEDS: ASPIRIN EC 81 MG TAB PO SCH (08:48)
[2017-07-07] MEDS: BUDESONIDE/FORMOTEROL 160/4.5 60 PUFFS/MDI IH SCH ×2 (08:48→20:52)
[2017-07-07] MEDS: CLOPIDOGREL BISULFATE 75 MG TAB PO SCH (08:49)
[2017-07-07] MEDS: IRBESARTAN 75 MG TAB PO SCH (08:49)
--- NOTE | 2017-07-07 13:53 | SOAPPROG ---
SOLIU Progress Note Assessment/Plan: Assessment: Plan: 07/05/17 13:35 Improving. CCM. 07/06/17 16:32 Continued gradual improvement. CCM. 07/07/17 13:52 Doing well. CCM. Finalize d/c plan. Subjective: Pt seen, discussed with staff. Reports, "I'm a happy camper today." States she is in a good mood and looking forward to returning to her home with increased assistance. Able to discuss her care needs and medical limitations in a reasonable manner. Calm can cooperative on unit, participating in all therapies. Compliant with meds. Objective: Vital Signs Temp Pulse Resp BP Pulse Ox 36.7 C 86 20 133/68 H 92 07/07/17 08:00 07/07/17 08:00 07/07/17 08:00 07/07/17 08:00 07/07/17 08:00 MSE; Calm, coop. Affect is bright, stable, approp. Mood is "good." TP generally linear, but she does wander at times. She is redirectable back to topic. TC reveals no overt psychosis. Denies SI/HI/. - Time Spent With Patient Time Spent With Patient: 25" ICD10 Worksheet Patient Problems: Problems Problem Status Onset Severe mixed bipolar I disorder with psychotic features Active Altered mental status Acute COPD (chronic obstructive pulmonary disease) Acute Elevated troponin Acute chronic disease mgmt/transitional care Acute
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
[2017-07-07] MEDS: OLANZapine 10 MG TAB PO SCH (20:51)
[2017-07-08] MEDS: CLOPIDOGREL BISULFATE 75 MG TAB PO SCH (08:55)
[2017-07-08] MEDS: ASPIRIN EC 81 MG TAB PO SCH (08:55)
[2017-07-08] MEDS: BUDESONIDE/FORMOTEROL 160/4.5 60 PUFFS/MDI IH SCH ×2 (08:55→19:26)
[2017-07-08] MEDS: IRBESARTAN 75 MG TAB PO SCH (08:56)
--- NOTE | 2017-07-08 15:41 | SOAPPROG ---
SOLIU Progress Note Assessment/Plan: Assessment: Plan: 07/05/17 13:35 Improving. CCM. 07/06/17 16:32 Continued gradual improvement. CCM. 07/07/17 13:52 Doing well. CCM. Finalize d/c plan. 07/08/17 15:41 Continued improvement. CCM. Likely d/c tomorrow if all is well. Subjective: Pt seen, discussed with staff. Reports feeling "really good." Upbeat and positive. Looking forward to returning to her home. Realistic about her limitations including needing help at home and driving limitations. Objective: Vital Signs Temp Pulse Resp BP Pulse Ox 36.7 C 75 17 115/58 L 96 07/08/17 08:50 07/08/17 08:50 07/08/17 08:50 07/08/17 08:50 07/08/17 08:50 MSE: Calm, coop. Affect is euthymic, stable, approp. Mood is "good." TP linear, though does wander at times. TC reveals no overt psychosis, though does mention something about having to get up at night "because it's part of the program to make me tinkle." - Time Spent With Patient Time Spent With Patient: 25" ICD10 Worksheet Patient Problems: Problems Problem Status Onset Severe mixed bipolar I disorder with psychotic features Active Altered mental status Acute COPD (chronic obstructive pulmonary disease) Acute Elevated troponin Acute chronic disease mgmt/transitional care Acute
[2017-07-08] MEDS: OLANZapine 10 MG TAB PO SCH (19:26)
[2017-07-09] MEDS: CLOPIDOGREL BISULFATE 75 MG TAB PO SCH (08:31)
[2017-07-09] MEDS: IRBESARTAN 75 MG TAB PO SCH (08:31)
[2017-07-09] MEDS: ASPIRIN EC 81 MG TAB PO SCH (08:31)
[2017-07-09] MEDS: BUDESONIDE/FORMOTEROL 160/4.5 60 PUFFS/MDI IH SCH (08:32)
[2017-07-09 12:55] VITALS: BP 126/70; PULSE 76; RESP 14; TEMP 97.9; O2SAT 94
--- NOTE | 2017-07-09 15:47 | BDS ---
[f rep st] [facility] DISCHARGE SUMMARY REASON FOR ADMISSION: Patient is a 67-year-old, female, with history of bipolar disorder a nd possible dementia. She was hospitalized at the [facility] on the medical floor for severe C OPD exacerbation, and was seen in consultation by Dr. Ez Mao. Once her COPD was stabilized , she was transferred to our unit for further psychiatric stabilization. She was mainly suffering fr om some mild confusion, and was thought not to be able to care for self at the time of the transfer. A full description of the events preceding admission can be found in Dr. Mao admission note d ated 07/02/2017. ADMITTING DIAGNOSES: Bipolar disorder, most recent episode manic, severe, with psychosis; nicotine d ependence; chronic obstructive pulmonary disease, recent exacerbation; coronary artery disease; hyper lipidemia; hypertension; sleep apnea. ADMITTING PHYSICAL EXAMINATION: Performed by Dr. Dax Smith, revealed no acute physical finding s. ADMISSION LABORATORY: Labs were not repeated on admission. HOSPITAL COURSE: Patient was admitted to [facility] inpatient unit on an M1 hold . She was pleasant, cooperative, though somewhat confused and did not seem fully able to consent for her care. She was, therefore, placed on a short-term certification by Dr. Mao. She was agre eable to taking Zyprexa, and this was ordered at 15 mg at h.s. She tolerated this well with no side effects. The patient's hospitalization was uncomplicated. She gradually improved, and was eating and sleeping well, and her respiratory status was stable. She was pleasant and cooperative with nj on a daily ba sis, and we reviewed in detail what her needs were at home, and were able to make arrangements for [facility] interventions, and to activate some of her local supports. Consideration was given to alf facility or assisted living, but it was felt that [facility]. CONDITION AT DISCHARGE: Stable. Her affect was euthymic, stable, and appropriate. She was showing no evidence of jama or psychosis. She was compliant with her medication and tolerating it well with no side effects. DISCHARGE MEDICATIONS: Symbicort inhaler 2 puffs twice daily, albuterol nebulizer as needed, aspirin 81 mg daily, Plavix 75 mg daily, Avapro 150 mg daily, and Zyprexa 15 mg at h.s. DISPOSITION: Patient left the hospital with her power of final cleaner, to return to her home. Followup with home health nursing there for evaluation. Other followup is with her primary care physician, Dr. See, the patient's home health nurse, Letitia barlow, and the mental health followup as scheduled by aged or disabled care worker. LEGAL COURSE: Patient was placed on a short-term certification at the expiration of her M1 hold. [facility] short-term certification was discontinued at time of her discharge. /[id number]/MODL
== END 2017-07-09 13:10 | disposition home or self-care (01) | DRG 885 ==
LOC: BBEH 18:45
PROVIDERS: ADMIT Internal Medicine Endocrinology, Diabetes & Metabolism; ATTEND Psychiatry & Neurology Behavioral Neurology & Neuropsychiatry
DX: F31.2 Bipolar disorder, current episode manic severe with psychotic features (principal); T43.506A Underdosing of unspecified antipsychotics and neuroleptics, initial encounter; J44.9 Chronic obstructive pulmonary disease, unspecified; F17.200 Nicotine dependence, unspecified, uncomplicated; I25.10 Atherosclerotic heart disease of native coronary artery without angina pectoris; E78.5 Hyperlipidemia, unspecified; I10 Essential (primary) hypertension; G47.30 Sleep apnea, unspecified; E66.9 Obesity, unspecified; R29.6 Repeated falls; I49.5 Sick sinus syndrome

== ENCOUNTER 2017-09-22 14:07 | Inpatient (IN) | payer OTHER ==
--- NOTE | 2017-09-22 15:11 | CPEKG ---
Heart Rate: 75 RR Interval: 800 P-R Interval: 164 QRSD Interval: 78 QT Interval: 388 QTC Interval: 434 P [place]: 75 QRS [place]: 75 T Wave [place]: 70 EKG Severity - NORMAL ECG - EKG Impression: SINUS RHYTHM Electronically Signed By: Alex Gill 22-Sep-2017 15:19:52
[2017-09-22] MEDS ORDERED: NS IV ONE (15:15)
[2017-09-22] MEDS ORDERED: NS 500 ML IV ONE (15:16)
--- NOTE | 2017-09-22 15:19 | EDPHY ---
H & P Stated Complaint: MAY HAVE UTI/DIZZY/SOME CONFUSION/FONSECA Time Seen by Provider: 09/22/17 15:09 HPI/ROS: CHIEF COMPLAINT: Confusion HISTORY OF PRESENT ILLNESS: The patient is a 67-year-old female who is brought to the emergency department by her friend who is dhofq-zm-irulsyms with concern for urinary tract infection. He and is state that she has been confused and had chills for the last 24 hours. In their experience in the past when she has displayed the symptoms that is been secondary to urinary tract infection. She also has a history of CHF and COPD and bipolar. She denies shortness of breath or cough. No nausea vomiting or diarrhea. No abdominal pain. No chest pain. Patient is confused when asked questions. She does live alone. REVIEW OF SYSTEMS: Constitutional: See HPI EENTM: denies: blurred vision, double vision, nose congestion Respiratory: denies: cough, shortness of breath Cardiac: denies: chest pain, irregular heart rate, lightheadedness, palpitations Gastrointestinal/Abdominal: denies: abdominal pain, diarrhea, nausea, vomiting, blood streaked stools Genitourinary: denies: dysuria, frequency, hematuria, pain Musculoskeletal: denies: joint pain, muscle pain Skin: denies: lesions, rash, jaundice, bruising Neurological: denies: headache, numbness, paresthesia, tingling, dizziness, weakness Hematologic/Lymphatic: denies: blood clots, easy bleeding, easy bruising Immunologic/allergic: denies: HIV/AIDS, transplant EXAM: GENERAL: Well-appearing, obese and in no acute distress. HEAD: Atraumatic, normocephalic. EYES: Pupils equal round and reactive to light, extraocular movements intact, sclera anicteric, conjunctiva are normal. ENT: TMs normal, nares patent, oropharynx clear without exudates. Moist mucous membranes. NECK: Normal range of motion, supple without lymphadenopathy or JVD. LUNGS: Breath sounds clear to auscultation bilaterally and equal. No wheezes rales or rhonchi. HEART: Regular rate and rhythm without murmurs, rubs or gallops. ABDOMEN: Soft, nontender, normoactive bowel sounds. No guarding, no rebound. No masses appreciated. BACK: No CVA tenderness, no spinal tenderness, step-offs or deformities EXTREMITIES: Normal range of motion, no pitting or edema. No clubbing or cyanosis. NEUROLOGICAL: Cranial nerves II through XII grossly intact. Normal speech, normal gait. 5/5 strength, normal movement in all extremities, normal sensation PSYCH: Pleasantly confused SKIN: Warm, dry, normal turgor, no visible rashes or lesions. Source: Patient, Old records Exam Limitations: Clinical condition - Personal History Current Tetanus/Diphtheria Vaccine: Yes - Medical/Surgical History Hx Asthma: No Hx Chronic Respiratory Disease: Yes Hx Diabetes: No Hx Cardiac Disease: Yes Hx Renal Disease: No Hx Cirrhosis: No Hx Alcoholism: Yes Hx HIV/AIDS: No Hx Splenectomy or Spleen Trauma: No Other PMH: ENCEPHALOPATHY, UTI,HYPONATREMIA,SIRS,RESP FAILURE, CHF, COPD, ETOH ABUSE,SEIZURE, CAD, BIPOLAR, DEFIBRILATER, HIP AND KNEE SURGERY - Social History Smoking Status: Current some day smoker Alcohol Use: Sober Drug Use: None Constitutional: Initial Vital Signs Temperature (C) 36.8 C 09/22/17 14:14 Heart Rate 92 09/22/17 14:14 Respiratory Rate 20 09/22/17 14:14 Blood Pressure 139/99 H 09/22/17 14:14 O2 Sat (%) 90 L 09/22/17 14:14 O2 Delivery Mode Nasal Cannula O2 (L/minute) 2 Allergies/Adverse Reactions: latex Allergy (Intermediate, Verified 09/22/17 14:11) acetaminophen [From Vicodin] Allergy (Verified 09/22/17 14:11) amoxicillin trihydrate [From Augmentin] Allergy (Verified 09/22/17 14:11) atorvastatin calcium [From Lipitor] Allergy (Verified 09/22/17 14:11) fenofibrate nanocrystallized [From Tricor] Allergy (Verified 09/22/17 14:11) fenofibrate,micronized [From Tricor] Allergy (Verified 09/22/17 14:11) hydrocodone bitartrate [From Vicodin] Allergy (Verified 09/22/17 14:11) levofloxacin [Levofloxacin] Allergy (Verified 09/22/17 14:11) metoprolol tartrate [From Lopressor] Allergy (Verified 09/22/17 14:11) penicillin V potassium [From Pen-Vee K] Allergy (Verified 09/22/17 14:11) potassium clavula *RETIRED-07/11/12 [From Augmentin] Allergy (Verified 09/22/17 14:11) quetiapine fumarate [From Seroquel] Allergy (Verified 09/22/17 14:11) ramipril [From Altace] Allergy (Verified 09/22/17 14:11) rosuvastatin calcium [From Crestor] Allergy (Verified 09/22/17 14:11) simvastatin [From Zocor] Allergy (Verified 09/22/17 14:11) tiotropium bromide [From Spiriva with HandiHaler] Allergy (Verified 09/22/17 14: 11) Home Medications: Medication Instructions Recorded Aspirin EC [Aspirin EC 81 mg (*)] 81 mg PO DAILY tab 07/09/17 Clopidogrel Bisulfate [Plavix (*)] 75 mg PO DAILY #30 tab 07/09/17 Cholecalciferol Vit D3 [Vitamin D3 1,000 units PO MOWEFR 09/22/17 (*)] Citalopram Hydrobromide [celeXA 10 5 mg PO MOWEFR 09/22/17 MG] Furosemide [Lasix 20 MG (*)] 20 mg PO DAILY 09/22/17 Isosorbide Dinitrate 30 mg PO DAILY 09/22/17 OLANZapine [OLANZapine (*)] 15 mg PO Q2D@19 09/22/17 Potassium Chloride [Klor-Con 10] 10 mg PO DAILY 09/22/17 lamoTRIgine [LamICTAL] 50 mg PO DAILY 09/22/17 Medical Decision Making - Diagnostics EKG Interpretation: An EKG obtained and was read and documented in trace view. Please see trace view for full reading and report. Sinus rhythm, no acute ischemic changes Imaging Results: Imaging Impressions Chest X-Ray 09/22/17 15:16 Impression: No pneumonia. Head CT 09/22/17 15:53 Impression: Stable and negative.. Results called to Dr. Gill at 4:26 PM General information for patients regarding this examination can be found at [email or web address]. If you have questions or comments about this report, please contact me at (hospital) or [phone] (cell). Imaging: Discussed imaging studies w/ salt plant operator Radiologist ED Course/Re-evaluation: The patient remains confused. Her urinalysis is not very impressive. I will add a head CT although she does not complain of a headache and does not have a fever. I have consulted Dr. Zamora who will admit. Differential Diagnosis: Partial list of the Differential diagnosis considered include but were not limited to; urinary tract infection, altered mental status, encephalopathy and although unlikely based on the history and physical exam, I also considered seizure, stroke, acute coronary disease, TIA, meningitis . - Data Points Laboratory Results: Laboratory Results 09/22/17 15:03 09/22/17 15:03 09/22/17 09/22/17 09/22/17 15:30 15:25 15:25 WBC RBC Hgb Hct MCV MCH MCHC RDW Plt Count MPV Neut % (Auto) Lymph % (Auto) [place] % (Auto) Eos % (Auto) Baso % (Auto) Nucleat RBC Rel Count Absolute Neuts (auto) Absolute Lymphs (auto) Absolute Monos (auto) Absolute Eos (auto) Absolute Basos (auto) Absolute Nucleated RBC Immature Gran % Immature Gran # PT INR APTT VBG Lactic Acid 1.9 mmol/L mmol/L (0.7-2.1) Sodium Potassium Chloride Carbon Dioxide Anion Gap BUN Creatinine Estimated GFR Glucose Calcium Total Bilirubin Troponin I Urine Color YELLOW Urine Appearance HAZY Urine pH 7.0 (5.0-7.5) Ur Specific [place] 1.011 (1.002-1.030) Urine Protein NEGATIVE (NEGATIVE) Urine Ketones NEGATIVE (NEGATIVE) Urine Blood NEGATIVE (NEGATIVE) Urine Nitrate NEGATIVE (NEGATIVE) Urine Bilirubin NEGATIVE (NEGATIVE) Urine Urobilinogen NEGATIVE EU EU (0.2-1.0) Ur Leukocyte Esterase NEGATIVE (NEGATIVE) Urine RBC 1-3 /hpf /hpf (0-3) Urine WBC 3-5 /hpf H /hpf (0-3) Ur Epithelial Cells TRACE /lpf /lpf (NONE-1+) Urine Glucose NEGATIVE (NEGATIVE) Urine Opiates Screen NEGATIVE ng/mL ng/mL (NEGATIVE) Urine Barbiturates NEGATIVE ng/mL ng/mL (NEGATIVE) Ur Phencyclidine Scrn NEGATIVE ng/mL ng/mL (NEGATIVE) Ur Amphetamines Screen NEGATIVE ng/mL ng/mL (NEGATIVE) U Benzodiazepines Scrn NEGATIVE ng/mL ng/mL (NEGATIVE) Urine Cocaine Screen NEGATIVE ng/mL ng/mL (NEGATIVE) U Marijuana (THC) Screen NEGATIVE ng/mL ng/mL (NEGATIVE) 09/22/17 09/22/17 09/22/17 15:03 15:03 15:03 WBC RBC Hgb Hct MCV MCH MCHC RDW Plt Count MPV Neut % (Auto) Lymph % (Auto) [place] % (Auto) Eos % (Auto) Baso % (Auto) Nucleat RBC Rel Count Absolute Neuts (auto) Absolute Lymphs (auto) Absolute Monos (auto) Absolute Eos (auto) Absolute Basos (auto) Absolute Nucleated RBC Immature Gran % Immature Gran # PT 13.6 SEC SEC (12.0-15.0) INR 1.05 (0.83-1.16) APTT 30.9 SEC SEC (23.0-38.0) VBG Lactic Acid Sodium 140 mEq/L mEq/L (134-144) Potassium 4.2 mEq/L mEq/L (3.5-5.2) Chloride 101 mEq/L mEq/L (97-110) Carbon Dioxide 26 mEq/l mEq/l (22-31) Anion Gap 13 mEq/L mEq/L (8-16) BUN 11 mg/dL mg/dL (7-23) Creatinine 0.9 mg/dL mg/dL (0.6-1.0) Estimated GFR > 60 Glucose 91 mg/dL mg/dL (70-100) Calcium 9.6 mg/dL mg/dL (8.5-10.4) Total Bilirubin 0.9 mg/dL mg/dL (0.1-1.4) Troponin I < 0.012 ng/mL ng/mL (0.000-0.034) Urine Color Urine Appearance Urine pH Ur Specific [place] Urine Protein Urine Ketones Urine Blood Urine Nitrate Urine Bilirubin Urine Urobilinogen Ur Leukocyte Esterase Urine RBC Urine WBC Ur Epithelial Cells Urine Glucose Urine Opiates Screen Urine Barbiturates Ur Phencyclidine Scrn Ur Amphetamines Screen U Benzodiazepines Scrn Urine Cocaine Screen U Marijuana (THC) Screen 09/22/17 15:03 WBC 9.25 10^3/uL 10^3/uL (3.80-9.50) RBC 4.64 10^6/uL 10^6/uL (4.18-5.33) Hgb 15.4 g/dL g/dL (12.6-16.3) Hct 45.5 % % (38.0-47.0) MCV 98.1 fL fL (81.5-99.8) MCH 33.2 pg pg (27.9-34.1) MCHC 33.8 g/dL g/dL (32.4-36.7) RDW 14.5 % % (11.5-15.2) Plt Count 250 10^3/uL 10^3/uL (150-400) MPV 9.5 fL fL (8.7-11.7) Neut % (Auto) 53.8 % % (39.3-74.2) Lymph % (Auto) 30.7 % % (15.0-45.0) [place] % (Auto) 11.0 % % (4.5-13.0) Eos % (Auto) 3.2 % % (0.6-7.6) Baso % (Auto) 0.8 % % (0.3-1.7) Nucleat RBC Rel Count 0.0 % % (0.0-0.2) Absolute Neuts (auto) 4.97 10^3/uL 10^3/uL (1.70-6.50) Absolute Lymphs (auto) 2.84 10^3/uL 10^3/uL (1.00-3.00) Absolute Monos (auto) 1.02 10^3/uL H 10^3/uL (0.30-0.80) Absolute Eos (auto) 0.30 10^3/uL 10^3/uL (0.03-0.40) Absolute Basos (auto) 0.07 10^3/uL 10^3/uL (0.02-0.10) Absolute Nucleated RBC 0.00 10^3/uL 10^3/uL (0-0.01) Immature Gran % 0.5 % % (0.0-1.1) Immature Gran # 0.05 10^3/uL 10^3/uL (0.00-0.10) PT INR APTT VBG Lactic Acid Sodium Potassium Chloride Carbon Dioxide Anion Gap BUN Creatinine Estimated GFR Glucose Calcium Total Bilirubin Troponin I Urine Color Urine Appearance Urine pH Ur Specific [place] Urine Protein Urine Ketones Urine Blood Urine Nitrate Urine Bilirubin Urine Urobilinogen Ur Leukocyte Esterase Urine RBC Urine WBC Ur Epithelial Cells Urine Glucose Urine Opiates Screen Urine Barbiturates Ur Phencyclidine Scrn Ur Amphetamines Screen U Benzodiazepines Scrn Urine Cocaine Screen U Marijuana (THC) Screen Medications Given: Discontinued Medications Sodium Chloride (Ns) 3,200 mls @ 6,400 mls/hr 30 ml/kg infuse over 30 min ( 3200 ml) IV EDNOW ONE PRN Reason: Protocol Stop: 09/22/17 15:44 Last Admin: 09/22/17 15:34 Dose: Not Given Sodium Chloride (Ns) 500 mls @ 1,000 mls/hr IV EDNOW ONE PRN Reason: Protocol Stop: 09/22/17 15:45 Last Admin: 09/22/17 15:34 Dose: 500 mls Departure - Departure Disposition: [facility] Inpatient Acute Condition: Fair
[2017-09-22 15:28] LABS: % IMMATURE GRANULYOCYTES 0.5 % (0.0-1.1); ABSOLUTE IMMATURE GRANULOCYTES 0.05 10^3/uL (0.00-0.10); ADD DIFF? NO; ADD MORPH? NO; ADD SCAN? NO; ATYPICAL LYMPHOCYTE FLAG 20 (0-99); FRAGMENT RBC FLAG 0 (0-99); HEMATOCRIT 45.5 % (38.0-47.0); HEMOGLOBIN 15.4 g/dL (12.6-16.3); LEFT SHIFT FLG 0 (0-99); LIPEMIA HEMOLYSIS FLAG 90 (0-99); MEAN CELL HEMOGLOBIN 33.2 pg (27.9-34.1); MEAN CELL HEMOGLOBIN CONCENTR. 33.8 g/dL (32.4-36.7); MEAN CELL VOLUME 98.1 fL (81.5-99.8); MEAN PLATELET VOLUME 9.5 fL (8.7-11.7); PLATELET CLUMPS FLAG 0 (0-99); PLATELET COUNT 250 10^3/uL (150-400); RED BLOOD CELL COUNT 4.64 10^6/uL (4.18-5.33); RED CELL DISTRIBUTION WIDTH 14.5 % (11.5-15.2)
[2017-09-22 15:32] LABS: COLOR YELLOW; LEUKOCYTE ESTERASE,URINE NEGATIVE (NEGATIVE); NITRITE,URINE NEGATIVE (NEGATIVE)
[2017-09-22 15:45] LABS: ANION GAP 13 mEq/L (8-16); BILIRUBIN,TOTAL 0.9 mg/dL (0.1-1.4); CALCIUM 9.6 mg/dL (8.5-10.4); CARBON DIOXIDE 26 mEq/l (22-31); CHLORIDE 101 mEq/L (97-110); CREATININE 0.9 mg/dL (0.6-1.0); GLOMERULAR FILTRATION RATE > 60; GLUCOSE 91 mg/dL (70-100); POTASSIUM 4.2 mEq/L (3.5-5.2); SODIUM 140 mEq/L (134-144)
[2017-09-22] MEDS ORDERED: ACETAMINOPHEN 325 MG TAB PO PRN (16:09)
[2017-09-22] MEDS ORDERED: ONDANSETRON DISINTEGRATING 4 MG TAB PO PRN (16:09)
[2017-09-22] MEDS ORDERED: ONDANSETRON 4 MG/2 ML VIAL IVP PRN (16:09)
[2017-09-22 16:10] LABS: INR 1.05 (0.83-1.16); PROTIME(PATIENT) 13.6 SEC (12.0-15.0)
[2017-09-22 16:11] LABS: APTT 30.9 SEC (23.0-38.0)
[2017-09-22 17:15] LABS: BASE EXCESS 1.3 mEq/L (-2.5-2.5); BICARBONATE 26 mEq/L (22-26); MEASURED OXYGEN SATURATION 89 % (92-95); PCO2 42 mmHg (34-38); PO2 58 mmHg (65-75); TCO2 27 mEq/L (23-27)
[2017-09-22] MEDS ORDERED: CHOLECALCIFEROL VIT D3 1,000 UNITS TAB PO SCH (17:15)
[2017-09-22 17:16] LABS: O2 CONCENTRATIION ROOM AIR % (0-100); P/F RATIO 0 RATIO
[2017-09-22 17:17] LABS: PHENCYCLIDINE URINE BCH < 6 ng/ml (NEGATIVE); PHENCYCLIDINE URINE BCH NEGATIVE (NEGATIVE); TETRAHYDROCANNABINOL URINE < 5 ng/mL (NEGATIVE); TETRAHYDROCANNABINOL URINE NEGATIVE (NEGATIVE)
--- NOTE | 2017-09-22 17:52 | GHP ---
[f rep st] HISTORY AND PHYSICAL DATE OF ADMISSION: 09/22/2017 CHIEF COMPLAINT: Tbblq-bz-gegslaz encephalopathy. HISTORY OF PRESENT ILLNESS: A 67 y/o F with depression, bipolar, MADELIN on CPAP brought in by her friends, 1 being her MD POA for increased confusion. They state she will intermittently not make sense, but it was worse over the last couple days. He last saw her on Wednesday at his office and she was making sense at that time. However, last night he talked to her on the phone and said she was talking in circles. She came to his office today and she thought he was the president and was talking nonsensical. He helps distribute her pillbox monthly. Its electronic and doses medications automatically and appears that she has been taking them as prescribed. Was hospitalized in June with COPD exacerbation. Had elevated troponin and negative stress test. She was then transferred to [facility] for psychosis. She was discharged on Zyprexa daily. Her PCP has since changed her dosing to qod. When I speak to her, she is not clear with her answers. She does report a cough and nasal congestion. When asked if she has had burning with urination, she says no, but then will say yes. Recently had toothache and was prescribed Amoxicillin without any reactions. She has not been wearing her CPAP or oxygen. She denies any headaches, neck stiffness, myalgias. REVIEW OF SYSTEMS: I completed a 10-point review of system, negative except as noted in HPI. Most of the history was taken from her friends, as well as her past medical records given she was mildly confused during interview. PAST MEDICAL HISTORY: 1. Questionable dementia. 2. Essential tremors. 3. COPD. 4. Chronic hypoxemic respiratory failure on 3 L. 5. Pacemaker. 6. Sick sinus syndrome. 7. Bipolar disorder. 8. Recently hospitalized at [facility], June 2017. 9. History of seizure disorder. 10. History of subclinical hypothyroidism. 11. Cognitive dysfunction. PAST SURGICAL HISTORY: Carpal tunnel release, cyst removal, right ANTON, hysterectomy, left TKA, tonsillectomy, adenoidectomy. SOCIAL HISTORY: Lives alone up in [place]. Her friends live in [place], 100 miles away. Nestor Webster is her MD POA who is a friend. Denies illicits. Drank alcohol in the past. States she smoked 2 packs of cigarettes last night. HOME MEDICATIONS: 1. Lamictal 50 mg daily. 2. Vitamin D3. 3. Aspirin 81 mg daily. 4. Olanzapine 15 mg every other day. 5. Plavix 75 mg daily. 6. Citalopram 5 mg Wednesday, Wednesday, Wednesday. 7. Isosorbide dinitrate 30 mg daily. 8. Potassium 10 mEq daily. 9. Lasix 20 mg daily. ALLERGIES: Multiple. See allergy list in [facility]. PHYSICAL EXAMINATION: VITAL SIGNS: Temperature 36.8, blood pressure 139/90, heart rate in the 70s, respiration 14-18, 90% on 3 L, 94% on 2 L. GENERAL: Obese, sitting up in bed, tearful. HEENT: PERRLA. EOMI. Oropharynx clear. There is no evidence of abscess or tooth infection. Has some mastoid sinus tenderness bilaterally. CV: Regular rate and rhythm. No murmurs, gallops, or rubs. LUNGS: No wheezing. GI: Soft, nontender, nondistended. Positive bowel sounds. : No suprapubic tenderness. No suprapubic or CVA tenderness. MUSCULOSKELETAL: 5/5 upper and lower extremity strength. NEURO: 2 through 12 intact. No meningeal signs PSYCH: She is alert x3, but is nonsensical at times. For example, she says she needs a medicine to make her cry. She is anxious. LABS: WBC 140, potassium 4.2, chloride 101, carbon dioxide 26, creatinine 0.6, glucose 91, total bilirubin 0.9. Troponin is less than 0.02. Urine is 3-5 white, negative nitrates, negative leuk esterase. Urine toxicology is pending. WBC is 9.2, hemoglobin stat 15.4, hematocrit 45, platelets 250. Lactate is 1.9. Chest x-ray is personally reviewed by me. No acute opacity or effusion. A head CT is negative. No evidence of sinusitis. EKG personally reviewed by me, normal sinus rhythm. FAMILY HISTORY: Alzheimer disease, lung cancer, suicide. ASSESSMENT AND PLAN: 1. Reemc-xj-gdndavf encephalopathy: per clinic note, she has a history of cognitive dysfunction. She has been afebrile without leukocytosis. Electrolytes are within normal. Query viral infection with new cough. No PNA on CXR. Normal head CT, no e/o tooth infection. Add vitral PCR. Urinalysis is minimally positive, but she can't tell me clearly if having dysuria. Urine culture pending; treat if this is positive. Not been compliant with her oxygen or CPAP; check. ABG. Troponin and EKG negative for ischemia. Add a TSH, utox. Can consider LP, but no signs or symptoms. Query if AMS due to underlying psych condition since not taking Zyprexa daily now. If above studies unrevealing, would consider contacting Psychiatry. BAL is pending. Has a history of seizure disorder, but no evidence of postictal state now. 2. Chronic hypoxemic respiratory failure: On 3 L, she has not been compliant with. Schedule CPAP. Check an ABG. 3. Coronary artery disease. Continue Plavix and aspirin. 4. Depression. Citalopram. 5. Bipolar disease. Lamictal and olanzapine. 6. History of alcohol abuse. She denies. A U-tox is pending. 7. History of subclinical hypothyroidism. Check a TSH. 8. History of sick sinus syndrome status post pacemaker. DIET: Cardiac. DEEP VENOUS THROMBOSIS PROPHYLAXIS: Lovenox. DISPOSITION: The patient warrants observation given [id number] encephalopathy warranting further lab evaluation including ABG, viral studies, and neuro monitoring. /[id number]/MODL MTDD
[2017-09-22] MEDS: OLANZapine 10 MG TAB PO SCH (19:28)
[2017-09-22 20:12] LABS: SALICYLATE < 1.0 mg/dL (2.0-20.0)
[2017-09-23 04:58] LABS: HEMATOCRIT 44.1 % (38.0-47.0); HEMOGLOBIN 14.5 g/dL (12.6-16.3); MEAN CELL HEMOGLOBIN 33.3 pg (27.9-34.1); MEAN CELL HEMOGLOBIN CONCENTR. 32.9 g/dL (32.4-36.7); MEAN CELL VOLUME 101.1 fL (81.5-99.8); RED BLOOD CELL COUNT 4.36 10^6/uL (4.18-5.33); RED CELL DISTRIBUTION WIDTH 14.5 % (11.5-15.2)
[2017-09-23] MEDS: POTASSIUM CL 10 MEQ TAB PO SCH (09:26)
[2017-09-23] MEDS: FUROSEMIDE 20 MG TAB PO SCH (09:26)
[2017-09-23] MEDS: lamoTRIgine 25 MG TAB PO SCH (09:26)
[2017-09-23] MEDS: CLOPIDOGREL BISULFATE 75 MG TAB PO SCH (09:26)
[2017-09-23] MEDS: ISOSORBIDE DINITRATE 20 MG TAB PO SCH (09:26)
[2017-09-23] MEDS: ASPIRIN EC 81 MG TAB PO SCH (09:27)
--- NOTE | 2017-09-23 13:17 | HOSPPROG ---
Hospitalist Progress Note Assessment/Plan: 67y female brought to the hospital second to confusion. Leonila encounter, chart reviewed. D/W SW. #Acute encephalopathy multifactorial, unclear etiol possibly related to underlying psych diagnosis vs ETOH BAL not done on admission psych consult ordered cont supportive care #Chronic hypoxemic resp failure cont 2-3L O2 baseline CPAP #Hx ETOH BAL not sent pt appears tremulous denies ETOH not reliable follow #Depression psych eval not SI #Hx CAD stable #Dispo unclear, change to inpt status unable to safely DC home still confused warrants further in house eval Subjective: At edge of bed. Confused. Thoguht process altered. No pain. Objective: Vital Signs Temp Pulse Resp BP Pulse Ox 37.3 C 91 16 138/77 H 94 09/23/17 11:29 09/23/17 11:29 09/23/17 11:29 09/23/17 11:29 09/23/17 11:29 Microbiology 09/22/17 16:30 Respiratory Panel (PCR) - Final Nasal, Sinus - Swab No Organism Detected Laboratory Results 09/23/17 04:52 09/22/17 09/23/17 09/24/17 05:59 05:59 05:59 Intake Total 1700 500 Output Total 1200 550 Balance 500 -50 PT 13.6 SEC (12.0-15.0) 09/22/17 15:03 INR 1.05 (0.83-1.16) 09/22/17 15:03 - Physical Exam Constitutional: not in pain, chronically ill appearing, obese Eyes: PERRL, anicteric sclera, EOMI Ears, Nose, Mouth, Throat: moist mucous membranes, hearing normal, ears appear normal Cardiovascular: regular rate and rhythym, No JVD, No edema Respiratory: no respiratory distress, no rales or rhonchi, reduced air movement Gastrointestinal: normoactive bowel sounds, No tenderness, No ascites Skin: warm, normal color, No erythema Musculoskeletal: normal joint ROM, no joint effusions, generalized weakness Neurologic: No AAOx3 Psychiatric: not anxious, encephalopathic, poor insight, poor judgement, poor memory, No thought process linear ICD10 Worksheet Patient Problems: Problems Problem Status Onset chronic disease mgmt/transitional care Acute 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
--- NOTE | 2017-09-23 13:38 | PDMN ---
Medical Necessity Medical necessity: C/M review: est. > 2 MN LOS for eval and TX of acute and persistent encephalopathy of unclear etiology, multifactorial - possibly related to underlying psych diagnosis versus ETOH, patient medically unsafe to discharge home requiring planned Psychiatry consult, ongoing pulse oximetry, supplemental O2, CPAP, close monitoring, evaluation, comorbid chronic hypoxemic respiratory failure with 2-3LO2/min at baseline, depression, hx alcoholism per 09/23/2017 Hospitalist progress note.
[2017-09-23 13:40] LABS: ETHANOL SERUM < 10 mg/dL (0-10)
--- NOTE | 2017-09-23 14:22 | ASMTCMCOM ---
CM Note CM Note Notes: Pt admitted with encephalopathy. Hx Bipolar d/o, possible etoh abuse,possible dementia, depression. Per hospitalist, pt confused and has altered thought process and is unsafe to d/c home to [place]. Pt had prior [facility] hospital admission 06/28/17 to 07/01/17 for AMS, COPD exacerbation, possible PNA. She was discharged from [facility] 07/02/17 to [facility] Behavioral Health for medication management and discharged from there 07/09/17. She also had an extended [facility] Behavioral Health stay in 2011. A psych eval has been requested to determine if pt will need another Behavioral Health stay and to assess her ability to care for herself. Pt lives alone and has no support. CM will follow for any d/c needs. Date Signed: 09/23/2017 02:21 PM Electronically Signed By:PRAVEEN Higginbotham
[2017-09-24] MEDS: POTASSIUM CL 10 MEQ TAB PO SCH (08:06)
[2017-09-24] MEDS: lamoTRIgine 25 MG TAB PO SCH (08:06)
[2017-09-24] MEDS: ASPIRIN EC 81 MG TAB PO SCH (08:06)
[2017-09-24] MEDS: CLOPIDOGREL BISULFATE 75 MG TAB PO SCH (08:06)
[2017-09-24] MEDS: FUROSEMIDE 20 MG TAB PO SCH (08:06)
[2017-09-24] MEDS: ISOSORBIDE DINITRATE 20 MG TAB PO SCH (08:08)
[2017-09-24] MEDS ORDERED: CITALOPRAM 20 MG TAB PO SCH (09:00)
[2017-09-24] MEDS ORDERED: CHOLECALCIFEROL VIT D3 1,000 UNITS TAB PO SCH (09:00)
--- NOTE | 2017-09-24 12:18 | HOSPPROG ---
Hospitalist Progress Note Assessment/Plan: 67y female brought to the hospital second to confusion. D/W SW. #Acute encephalopathy improved multifactorial, unclear etiol possibly related to underlying psych diagnosis BAL negative psych consult ordered cont supportive care #Chronic hypoxemic resp failure cont 2-3L O2 baseline CPAP #Hx ETOH BAL negative resolved tremulous denies ETOH follow #Depression psych eval not SI #Hx CAD stable #Dispo unclear, change to inpt status unable to safely DC home PT/OT eval pending still mild confused warrants further in house eval Subjective: Feeling tired today. Less confusion. Not ready to go home. Objective: Vital Signs Temp Pulse Resp BP Pulse Ox 37.2 C 60 24 H 111/65 95 09/24/17 11:26 09/24/17 11:26 09/24/17 11:26 09/24/17 11:26 09/24/17 11:26 09/23/17 09/24/17 09/25/17 05:59 05:59 05:59 Intake Total 400 Output Total 650 300 Balance -650 100 PT 13.6 SEC (12.0-15.0) 09/22/17 15:03 INR 1.05 (0.83-1.16) 09/22/17 15:03 - Physical Exam Constitutional: not in pain, chronically ill appearing, obese Eyes: PERRL, anicteric sclera, EOMI Ears, Nose, Mouth, Throat: moist mucous membranes, hearing normal, ears appear normal Cardiovascular: regular rate and rhythym, No JVD, No edema Respiratory: no respiratory distress, no rales or rhonchi, reduced air movement Gastrointestinal: normoactive bowel sounds, No tenderness, No ascites Skin: warm, normal color, No erythema Musculoskeletal: normal joint ROM, no joint effusions, generalized weakness Psychiatric: not anxious, poor judgement, poor memory ICD10 Worksheet Patient Problems: Problems Problem Status Onset chronic disease mgmt/transitional care Acute 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
--- NOTE | 2017-09-24 14:40 | ASMTCMCOM ---
CM Note CM Note Notes: Per hospitalist, pt somewhat calmer today. She suspects pt is not taking her psych meds appropriately at home. PT/OT evals requested. Psych eval has not been completed yet. D/C plan to be pursued after psych eval and PT/OT input. Date Signed: 09/24/2017 02:39 PM Electronically Signed By:PRAVEEN Higginbotham
[2017-09-24] MEDS: OLANZapine 10 MG TAB PO SCH (18:06)
[2017-09-25 07:43] VITALS: TEMP 98.4
[2017-09-25] MEDS: FUROSEMIDE 20 MG TAB PO SCH (08:47)
[2017-09-25] MEDS: ASPIRIN EC 81 MG TAB PO SCH (08:47)
[2017-09-25] MEDS: CLOPIDOGREL BISULFATE 75 MG TAB PO SCH (08:47)
[2017-09-25] MEDS: ISOSORBIDE DINITRATE 20 MG TAB PO SCH (08:48)
[2017-09-25] MEDS: POTASSIUM CL 10 MEQ TAB PO SCH (08:48)
[2017-09-25] MEDS: lamoTRIgine 25 MG TAB PO SCH (08:48)
[2017-09-25 11:54] VITALS: BP 135/69; PULSE 72; RESP 17
[2017-09-25 12:33] VITALS: O2SAT 87
--- NOTE | 2017-09-25 14:22 | GDS ---
[f rep st] DISCHARGE SUMMARY DISCHARGE DIAGNOSES: 1. Acute encephalopathy. 2. Chronic hypoxemic respiratory failure. 3. History of alcohol abuse. 4. History of bipolar disorder. 5. History of coronary artery disease. STUDIES AND PROCEDURES DONE: CT of the head. PHYSICAL EXAM: GENERAL: The patient is alert. VITAL SIGNS: Afebrile at 36.9, pulse is 72, respira tory rate 17, blood pressure is 135/69, she is saturating 91% on 1 L. I have seen and evaluated the patient on the day of discharge. HOSPITAL COURSE: The patient is a 67-year-old female, brought to the hospital with confusion. She w as evaluated and diagnosed with: 1. Acute encephalopathy, the etiology of this is still unclear at the time of disposition. The marino ent does have an underlying psychiatric diagnosis, and she did present with signs of jama at the adiel e of admission. Her home medications were re-initiated. Her condition has improved. She is ready t o go home, and she feels that she has returned to her baseline. During this hospitalization, the silvio barakat had no signs of infection, and will continue her previously prescribed medications. 2. Chronic hypoxemic respiratory failure. She has long-term oxygen at home. She requires 1-2 L con tinuously. She states that sometimes she does not wear her oxygen when she goes to the grocery store or does daily activities around her house. I have instructed her that it is a necessity for her to wear her oxygen at all times. 3. History of alcohol abuse. The patient's blood alcohol level was negative at the time of admissio n. She denies any alcohol consumption. 4. History of depression with bipolar disorder. The patient is not suicidal. She has contracted fo r safety. She will continue her previously prescribed home medications. 5. History of coronary artery disease. This is stable. DISPOSITION: The patient will be discharged home, with her MDBLUE. I have reviewed the patient's d isposition with her RN, as well as case management. She has been evaluated by physical therapy, as w ell as occupational therapy and cleared safe to be discharged home. FOLLOW UP: Follow up will be with her primary care physician, Dr. Raghav See in the next 3-4 days . There are no pending studies. I spent greater than 35 minutes in the care, coordination, and management of this patient's dispositi on. /[id number]/MODL
--- NOTE | 2017-09-25 14:55 | ASDISCHSUM ---
Discharge Information Plan Status: Medically Cleared to Leave: Discharge Date:09/25/2017 01:43 PM D/C Disposition: ADT D/C Disposition:Home, Routine, Self-Care Projected Discharge Date:09/25/2017 01:43 PM Transportation at D/C: Discharge Delay Reason: Follow-Up Date:09/25/2017 01:43 PM Discharge Slot: Final Diagnosis: Placement Information Patient Contact Information Contact Name:YG Relationship:Friend Address:[place] City: [place] [facility] Phone: State/Zip Code: Email: Financial Information Financial Class: Primary Plan Desc:MEDICARE INPATIENT Primary Plan Number:[id number] Secondary Plan Desc:[facility] [place] [facility] Secondary Plan Number:[id number] Assessment Information LACE LACE Acuity / Level of Care Answers: Was the patient admitted to hospital via the emergency department? Yes: Comorbidities - select Answers: Moderate or severe liver all that apply disease or renal disease Emergency dept visits in Answers: 1 last 6 months Score: 8 Date Signed: 09/22/2017 04:40 PM Electronically Signed By:Gaby Kenny RN [facility] CM Progress Note CM Note CM Note Notes: Pt admitted with encephalopathy. Hx Bipolar d/o, possible etoh abuse,possible dementia, depression. Per hospitalist, pt confused and has altered thought process and is unsafe to d/c home to [place]. Pt had prior [facility] hospital admission 06/28/17 to 07/01/17 for AMS, COPD exacerbation, possible PNA. She was discharged from [facility] 07/02/17 to [facility] for medication management and discharged from there 07/09/17. She also had an extended [facility] Behavioral Health stay in 2011. A psych eval has been requested to determine if pt will need another Behavioral Health stay and to assess her ability to care for herself. Pt lives alone and has no support. CM will follow for any d/c needs. Date Signed: 09/23/2017 02:21 PM Electronically Signed By:PRAVEEN Higginbotham [facility] CM Progress Note CM Note CM Note Notes: Per hospitalist, pt somewhat calmer today. She suspects pt is not taking her psych meds appropriately at home. PT/OT evals requested. Psych eval has not been completed yet. D/C plan to be pursued after psych eval and PT/OT input. Date Signed: 09/24/2017 02:39 PM Electronically Signed By:PRAVEEN Higginbotham [facility] CM Progress Note CM Note CM Note Notes: Pt clearer today and MD felt pt could DC home. Called pt's friend Nestor who has her keys and could provide transport. He agreed to come get pt. Pt Dc'd with no needs. Date Signed: 09/25/2017 02:54 PM Electronically Signed By:Karena Salvador LCSW Intervention Information
== END 2017-09-25 13:43 | disposition home or self-care (01) | DRG 71 ==
LOC: F3N 17:21 → OBSVTOIN 09-23 13:10
PROVIDERS: ADMIT Internal Medicine; ATTEND Internal Medicine
DX: G93.40 Encephalopathy, unspecified (principal); J96.11 Chronic respiratory failure with hypoxia; F31.9 Bipolar disorder, unspecified; I25.10 Atherosclerotic heart disease of native coronary artery without angina pectoris; G47.33 Obstructive sleep apnea (adult) (pediatric); J44.9 Chronic obstructive pulmonary disease, unspecified; E03.9 Hypothyroidism, unspecified; F17.210 Nicotine dependence, cigarettes, uncomplicated; Z95.0 Presence of cardiac pacemaker; Z79.02 Long term (current) use of antithrombotics/antiplatelets
CPT/HCPCS: 80307; 97161-GP; 97165-GO; 97535-GO; G0378; G0480; G8978-GP-CI; G8979-GP-CI; G8980-GP-CI; G8987-GO-CI; G8988-GO-CI